=== PATIENT | male | born 1935 | race Caucasian/White ===

== ENCOUNTER 2016-11-05 16:26 | Emergency (ER) | payer MEDICARE ==
[2016-11-05] MEDS ORDERED: SODIUM CHLORIDE 0.9% 1,000 ML IV STA (18:07)
[2016-11-05 18:12] VITALS: RESP 16
--- NOTE | 2016-11-05 18:28 | ED ---
General Adult HPI - General Chief complaint: Wound/Laceration Stated complaint: sent by dr for an ulcer and other issues Time Seen by Provider: 11/05/16 17:58 Source: patient, family, RN notes reviewed Mode of arrival: wheelchair Limitations: physical limitation - History of Present Illness Initial comments: Patient 81-year-old male who presents emergency room today with chief complaint of a decubitus ulcer. Patient does admit to a ulcer that started 4 days ago. History provided by . States first saw 4 days ago. Patient states does not hurt. There is good with family doctor earlier today advised come here to the emergency room for admission. Patient denies any recent fever, chills, shortness of breath, chest pain, back pain, abdominal pain, nausea or vomiting, numbness or tingling, dysuria or hematuria, constipation or diarrhea, headaches or visual changes, or any other complaints. - Related Data Home Medications Medication Instructions Recorded Confirmed Acetaminophen-Codeine 300-30mg 1 tab PO QID PRN 04/01/16 11/05/16 [Tylenol w/codeine #3] Amantadine HCl [Symmetrel] 100 mg PO BID 04/01/16 11/05/16 Carbidopa-Levodopa 25-100 mg 2 tab PO TID 04/01/16 11/05/16 [Sinemet 25-100 mg] Dutasteride [Avodart] 0.5 mg PO DAILY 04/01/16 11/05/16 Furosemide [Lasix] 20 mg PO MOTUWETHFR 04/01/16 11/05/16 Multivitamins, Thera [Multivitamin 1 tab PO DAILY 04/01/16 11/05/16 (formulary)] Balm-3 Fatty Acids/Fish Oil [Fish 1 cap PO DAILY 04/01/16 11/05/16 Oil 1,000 mg Softgel] Pantoprazole Sodium [Protonix] 40 mg PO DAILY 04/01/16 11/05/16 diphenhydrAMINE [Benadryl] 50 mg PO HS 04/01/16 11/05/16 rOPINIRole HCL [Requip] 4 mg PO TID 04/01/16 11/05/16 Benzonatate [Tessalon Perles] 100 mg PO TID 11/05/16 11/05/16 Lactulose 10 gm PO DAILY 11/05/16 11/05/16 Previous Rx's Medication Instructions Recorded Bacitracin Oint 28.4 gm TOPICAL BID #1 tube 11/05/16 Allergies Allergy/AdvReac Type Severity Reaction Status Date / Time oxycodone [From OxyContin] Allergy Rash/Hives Verified 11/05/16 18:38 morphine AdvReac Diaphoresis Verified 11/05/16 18:38 Review of Systems ROS Statement: Those systems with pertinent positive or pertinent negative responses have been documented in the HPI. ROS Other: All systems not noted in ROS Statement are negative. Past Medical History Past Medical History: Dementia Additional Past Medical History / Comment(s): HYPOTENSION, parkinsons, herniated intestine History of Any Multi-Drug Resistant Organisms: None Reported Past Surgical History: Orthopedic Surgery Additional Past Surgical History / Comment(s): LEFT HIP REPLACEMENT AND BACK SURGERY, COLOSTOMY BAG, bilateral rotator cuff Past Psychological History: No Psychological Hx Reported Smoking Status: Former smoker Past Alcohol Use History: None Reported Past Drug Use History: None Reported General Exam - General Exam Comments Initial Comments: General: The patient is awake and alert, in no distress, and does not appear acutely ill. Eye: Pupils are equal, round and reactive to light, extra-ocular movements are intact. No nystagmus. There is normal conjunctiva bilaterally. No signs of icterus. Ears, nose, mouth and throat: There are moist mucous membranes and no oral lesions. Neck: The neck is supple, there is no tenderness or JVD. Cardiovascular: There is a regular rate and rhythm. No murmur, rub or gallop is appreciated. Respiratory: Lungs are clear to auscultation, respirations are non-labored, breath sounds are equal. No wheezes, stridor, rales, or rhonchi. Musculoskeletal: Normal ROM, no tenderness. Strength 5/5. Sensation intact. Pulses equal bilaterally 2+. Neurological: A&O x 3. CN II-XII intact, There are no obvious motor or sensory deficits. Coordination appears grossly intact. Speech is normal. Skin: Patient does have stage I decubitus ulcer to the right buttocks. Measures approximately 2-3 cm across. Psychiatric: Cooperative, appropriate mood & affect, normal judgment. Limitations: physical limitation Course Vital Signs 11/05/16 11/05/16 16:30 18:11 Temperature 98.2 F 98 F Pulse Rate 80 64 Respiratory 20 16 Rate Blood Pressure 115/64 110/53 O2 Sat by Pulse 98 97 Oximetry Medical Decision Making - Medical Decision Making Patient's labs been reviewed are unremarkable. Case was discussed and seen by attending physician Dr. Villarreal here in the emergency room. He did discuss the case with Dr. Solomon at this time does not recommend admission to the hospital. Patient and family member have been updated and will be discharged home advised to use a topical antibiotic ointment and watch for any increase or worsening symptoms. Advised follow-up with PCP in the next 2 days or return here to the emergency room for any other concerns. - Lab Data Result diagrams: 11/05/16 18:20 11/05/16 18:20 Lab Results 11/05/16 11/05/16 11/05/16 Range/Units 18:20 18:20 18:20 WBC 8.8 (3.8-10.6) k/uL RBC 4.22 L (4.30-5.90) m/uL Hgb 12.7 L (13.0-17.5) gm/dL Hct 40.1 (39.0-53.0) % MCV 95.1 (80.0-100.0) fL MCH 30.0 (25.0-35.0) pg MCHC 31.6 (31.0-37.0) g/dL RDW 13.8 (11.5-15.5) % Plt Count 349 (150-450) k/uL Neutrophils % 66 % Lymphocytes % 13 % Monocytes % 8 % Eosinophils % 9 % Basophils % 1 % Neutrophils # 5.8 (1.3-7.7) k/uL Lymphocytes # 1.2 (1.0-4.8) k/uL Monocytes # 0.7 (0-1.0) k/uL Eosinophils # 0.8 H (0-0.7) k/uL Basophils # 0.1 (0-0.2) k/uL Hypochromasia Slight PT 10.5 (9.0-12.0) sec INR 1.0 (<1.1) APTT 23.5 (22.0-30.0) sec Sodium 141 (137-145) mmol/L Potassium 4.2 (3.5-5.1) mmol/L Chloride 105 (98-107) mmol/L Carbon Dioxide 22 (22-30) mmol/L Anion Gap 14 mmol/L BUN 22 H (9-20) mg/dL Creatinine 0.90 (0.66-1.25) mg/dL Est GFR (MDRD) Af Amer >60 (>60 ml/min/1.73 sqM) Est GFR (MDRD) Non-Af >60 (>60 ml/min/1.73 sqM) Glucose 130 H (74-99) mg/dL Calcium 9.2 (8.4-10.2) mg/dL Total Bilirubin 0.3 (0.2-1.3) mg/dL AST 26 (17-59) U/L ALT 14 L (21-72) U/L Alkaline Phosphatase 79 (38-126) U/L Total Protein 6.5 (6.3-8.2) g/dL Albumin 3.8 (3.5-5.0) g/dL Urine Color Urine Appearance (Clear) Urine pH (5.0-8.0) Ur Specific [place] (1.001-1.035) Urine Protein (Negative) Urine Glucose (UA) (Negative) Urine Ketones (Negative) Urine Blood (Negative) Urine Nitrite (Negative) Urine Bilirubin (Negative) Urine Urobilinogen (<2.0) mg/dL Ur Leukocyte Esterase (Negative) 11/05/16 Range/Units 18:30 WBC (3.8-10.6) k/uL RBC (4.30-5.90) m/uL Hgb (13.0-17.5) gm/dL Hct (39.0-53.0) % MCV (80.0-100.0) fL MCH (25.0-35.0) pg MCHC (31.0-37.0) g/dL RDW (11.5-15.5) % Plt Count (150-450) k/uL Neutrophils % % Lymphocytes % % Monocytes % % Eosinophils % % Basophils % % Neutrophils # (1.3-7.7) k/uL Lymphocytes # (1.0-4.8) k/uL Monocytes # (0-1.0) k/uL Eosinophils # (0-0.7) k/uL Basophils # (0-0.2) k/uL Hypochromasia PT (9.0-12.0) sec INR (<1.1) APTT (22.0-30.0) sec Sodium (137-145) mmol/L Potassium (3.5-5.1) mmol/L Chloride (98-107) mmol/L Carbon Dioxide (22-30) mmol/L Anion Gap mmol/L BUN (9-20) mg/dL Creatinine (0.66-1.25) mg/dL Est GFR (MDRD) Af Amer (>60 ml/min/1.73 sqM) Est GFR (MDRD) Non-Af (>60 ml/min/1.73 sqM) Glucose (74-99) mg/dL Calcium (8.4-10.2) mg/dL Total Bilirubin (0.2-1.3) mg/dL AST (17-59) U/L ALT (21-72) U/L Alkaline Phosphatase (38-126) U/L Total Protein (6.3-8.2) g/dL Albumin (3.5-5.0) g/dL Urine Color Yellow Urine Appearance Clear (Clear) Urine pH 5.5 (5.0-8.0) Ur Specific [place] 1.016 (1.001-1.035) Urine Protein Negative (Negative) Urine Glucose (UA) Negative (Negative) Urine Ketones Trace H (Negative) Urine Blood Negative (Negative) Urine Nitrite Negative (Negative) Urine Bilirubin Negative (Negative) Urine Urobilinogen <2.0 (<2.0) mg/dL Ur Leukocyte Esterase Negative (Negative) Disposition Clinical Impression: Decubitus ulcer Disposition: HOME SELF-CARE Condition: Good Instructions: Pressure Ulcer (ED) Additional Instructions: Please make sure that you are changing positions every few hours as discussed. Please use topical antibiotic as prescribed. Please follow-up family doctor over the next 2 days. Please return to emergency room if any symptoms increase or worsen appropriate concerns. Prescriptions: Bacitracin Oint 28.4 gm TOPICAL BID #1 tube Referrals: Mahin Vidales MD [Primary Care Provider] - 1-2 days Time of Disposition: 19:10
[2016-11-05 18:34] LABS: Basophils # (A) 0.1 k/uL (0-0.2); Basophils % (A) 1 %; CH 30.2; CHCM 31.9; Eosinophils # (A) 0.8 k/uL (0-0.7); Eosinophils % (A) 9 %; HCT 40.1 % (39.0-53.0); HDW 2.71; HGB 12.7 gm/dL (13.0-17.5); Hypochromasia Slight; Luc # (Auto) 0.27; Luc % (Auto) 3; Lymphocytes # (A) 1.2 k/uL (1.0-4.8); Lymphocytes % (A) 13 %; MCHC 31.6 g/dL (31.0-37.0); MCV 95.1 fL (80.0-100.0); Mean Platelet Volume 7.2; Monocytes # (A) 0.7 k/uL (0-1.0); Monocytes % (A) 8 %; Neutrophils # (A) 5.8 k/uL (1.3-7.7); Neutrophils % (A) 66 %; RBC 4.22 m/uL (4.30-5.90); RDW 13.8 % (11.5-15.5); WBC 8.8 k/uL (3.8-10.6); WBC (Perox) 8.98
[2016-11-05 18:39] LABS: Partial Thromboplastin Time 23.5 sec (22.0-30.0); Prothrombin Time 10.5 sec (9.0-12.0)
[2016-11-05 18:42] LABS: Chloride 105 mmol/L (98-107); Glucose 130 mg/dL (74-99); Potassium 4.2 mmol/L (3.5-5.1); Total Protein 6.5 g/dL (6.3-8.2)
[2016-11-05 18:42] LABS: Appearance,Urine Clear (Clear); Bilirubin,Urine Negative (Negative); Glucose,Urine (UA) Negative (Negative); Ketones,Urine Trace (Negative); Leukocyte Esterase,Urine Negative (Negative); Nitrite,Urine Negative (Negative); PH, Urine 5.5 (5.0-8.0); Protein,Urine Negative (Negative); Specific Gravity,Urine 1.016 (1.001-1.035); UA Billing (MACRO vs. MICRO) CHEM; Urobilinogen,Urine <2.0 mg/dL (<2.0)
[2016-11-05 18:43] LABS: ALT 14 U/L (21-72); AST 26 U/L (17-59); Alkaline Phosphatase 79 U/L (38-126); Anion Gap 14 mmol/L; Blood Urea Nitrogen 22 mg/dL (9-20); Calcium 9.2 mg/dL (8.4-10.2); Carbon Dioxide 22 mmol/L (22-30); Non-African American GFR(MDRD) >60 (>60 ml/min/1.73 sqM); Sodium 141 mmol/L (137-145); Total Bilirubin 0.3 mg/dL (0.2-1.3)
[2016-11-05 19:33] VITALS: BP 125/67; PULSE 62; TEMP 97.8
== END 2016-11-05 19:36 | disposition home or self-care (01) ==
LOC: EC 16:26
DX: L89.311 Pressure ulcer of right buttock, stage 1 (principal); G20 Parkinson's disease; F02.80 Dementia in other diseases classified elsewhere, unspecified severity, without behavioral disturbance, psychotic disturbance, mood disturbance, and anxiety; Z87.891 Personal history of nicotine dependence; Z88.5 Allergy status to narcotic agent; Z79.899 Other long term (current) drug therapy
CPT/HCPCS: 36415; 80053; 81003; 85025; 85610; 85730; 87040; 96360; 99283

== ENCOUNTER 2017-03-02 11:35 | Inpatient (IN) | payer MEDICARE ==
[2017-03-02 14:27] VITALS: BMI 21.9
[2017-03-02 15:50] LABS: Basophils # (A) 0.1 k/uL (0-0.2); Basophils % (A) 1 %; CH 29.3; CHCM 32.3; Eosinophils # (A) 0.7 k/uL (0-0.7); Eosinophils % (A) 7 %; HCT 39.2 % (39.0-53.0); HDW 2.81; HGB 12.5 gm/dL (13.0-17.5); Luc % (Auto) 2; Lymphocytes % (A) 10 %; MCH 29.1 pg (25.0-35.0); MCHC 31.8 g/dL (31.0-37.0); MCV 91.4 fL (80.0-100.0); Mean Platelet Volume 8.1; Monocytes # (A) 0.7 k/uL (0-1.0); Monocytes % (A) 7 %; Neutrophils # (A) 7.1 k/uL (1.3-7.7); Neutrophils % (A) 73 %; RBC 4.29 m/uL (4.30-5.90); RDW 14.4 % (11.5-15.5); WBC 9.7 k/uL (3.8-10.6); WBC (Perox) 9.89
[2017-03-02] MEDS ORDERED: VANCOMYCIN 1,500 MG in SODIUM CHLORIDE 0.9% 250 ML IVPB ONE (16:00)
[2017-03-02 16:06] LABS: ALT 19 U/L (21-72); AST 22 U/L (17-59); Alkaline Phosphatase 91 U/L (38-126); Anion Gap 9 mmol/L; Blood Urea Nitrogen 24 mg/dL (9-20); C Reactive Protein 27.9 mg/L (<10.0); Carbon Dioxide 28 mmol/L (22-30); Chloride 102 mmol/L (98-107); Glucose 97 mg/dL (74-99); Non-African American GFR(MDRD) >60 (>60 ml/min/1.73 sqM); Potassium 4.7 mmol/L (3.5-5.1); Sodium 139 mmol/L (137-145); Total Bilirubin 0.3 mg/dL (0.2-1.3); Total Protein 6.1 g/dL (6.3-8.2)
[2017-03-02] MEDS: SODIUM CHLORIDE 0.9% 1,000 ML IV SCH (17:07)
[2017-03-02] MEDS: FUROSEMIDE 20 MG TAB PO SCH (17:42)
[2017-03-02] MEDS: CARBIDOPA-LEVODOPA 25-100 MG 1 EACH TAB PO SCH ×2 (17:44→17:58)
[2017-03-02] MEDS: BENZONATATE 100 MG CAP PO SCH (17:44)
[2017-03-02] MEDS: AMANTADINE HCL 100 MG CAP PO SCH (17:44)
[2017-03-02] MEDS: diphenhydrAMINE 50 MG CAP PO SCH (17:44)
[2017-03-02] MEDS: rOPINIRole HCL 4 MG TABLET PO SCH ×2 (18:24)
[2017-03-02] MEDS: Acetaminophen-Codeine 300-30mg TAB PO PRN ×2 (18:24→23:58)
[2017-03-02] MEDS: PIPERACILLIN-TAZOBACTAM 3.375 GM in DEXTROSE/WATER 1 50ML.BAG IVPB SCH ×2 (19:01→23:59)
--- NOTE | 2017-03-02 19:04 | P.HPIM ---
History of Present Illness H&P Date: 03/02/17 Chief Complaint: Severe decub ulcer with failure to outpatient treatment, abdominal pain, ch 82-year-old male debilitated with multiple medical problem had developed decub ulcer for the last few weeks with failure to outpatient treatment has been doing much worse was brought to the hospital as a direct admit was start him on IV antibiotics with Zosyn and vancomycin might require 1 VAC and wound care for the next few weeks. Culture will be done patient also has been complaining of increased abdominal pain with nausea and vomiting with significant recurrent abdominal hernia with his ostomy in the past. Also patient had slight change mental status not been able to ambulate and walk has been having episode of worsening confusion on and off lately. [place] patient has been declining in weight gradually he lost quite bed in the last few month his appetite is down and has been having more trouble with his bowels. Review of Systems Constitutional: Reports anorexia, Reports chronic headaches, Reports chronic pain, Reports fatigue, Reports fever, Reports lethargy, Reports malaise, Reports poor appetite, Reports weakness, Reports weight loss, Denies as per HPI , Denies chills, Denies daytime sleepiness, Denies night sweats, Denies sweats, Denies weight gain Eyes: bilateral as per HPI Ears: bilateral: decreased hearing Ears, nose, mouth and throat: Reports ant. neck pain, Reports mouth pain, Reports nasal congestion, Reports sinus pain, Reports sinus pressure, Denies as per HPI, Denies bleeding gums, Denies dental pain, Denies dysphagia, Denies epistaxis, Denies headache, Denies hoarseness, Denies nasal discharge, Denies neck fullness/pressure, Denies neck lump, Denies nose pain, Denies odynophagia, Denies post-nasal drip, Denies swelling in mouth, Denies swelling in throat, Denies sore throat, Denies vertigo, Denies voice changes Cardiovascular: Reports dyspnea on exertion, Reports irregular heart beat, Reports leg edema, Reports lightheadedness, Reports orthopnea, Reports paroxysmal nocturnal dyspnea, Reports rapid heart beat, Reports shortness of breath, Denies as per HPI, Denies chest pain, Denies claudication, Denies decreased exercise tolerance, Denies edema, Denies high blood pressure, Denies palpitations, Denies phlebitis, Denies syncope Respiratory: Reports congestion, Reports cough, Reports dyspnea, Denies as per HPI, Denies cough with sputum, Denies excessive sputum, Denies hemoptysis, Denies home oxygen, Denies pain, Denies pain on inspiration, Denies pleurisy, Denies respiratory infections, Denies sleep apnea, Denies snoring, Denies wheezing Gastrointestinal: Reports abdominal pain, Reports bloating, Reports change in bowel habits, Reports diarrhea, Reports dyspepsia, Reports early satiety, Reports excessive gas, Reports heartburn, Reports indigestion, Reports nausea, Reports vomiting, Denies as per HPI, Denies belching, Denies BRBPR, Denies coffee ground emesis, Denies constipation, Denies hematemesis, Denies hematochezia, Denies jaundice, Denies lactose intolerance, Denies loss of appetite, Denies melena Genitourinary: Reports dysuria, Reports nocturia, Reports polyuria, Reports urinary hesitancy, Denies as per HPI, Denies decreased libido, Denies difficulties fathering child, Denies discharge, Denies erectile dysfunction, Denies flank pain, Denies genital pain, Denies genital sores, Denies hematuria, Denies impotence, Denies incontinence, Denies kidney stones, Denies testicular lump, Denies testicular pain, Denies urinary frequency, Denies urinary retention Musculoskeletal: Reports atrophy, Reports frequent falls, Reports gait dysfunction, Reports leg numbness/tingling, Reports loss of height, Reports low back pain, Reports myalgias, Reports neck pain, Reports neck stiffness, Denies as per HPI, Denies arm numbness/tingling, Denies fractures, Denies hot joints, Denies limitation of motion, Denies morning stiffness, Denies muscle cramps, Denies muscle weakness, Denies prior amputations, Denies redness of joints, Denies shooting arm pain, Denies shooting leg pain Musculoskeletal: bilateral: ankle pain, ankle stiffness Integumentary: Reports pruritus, Reports rash, Denies as per HPI, Denies acne, Denies boils, Denies brittle nails, Denies change in hair/nails, Denies color changes, Denies darkening of skin, Denies depigmentation, Denies dryness, Denies foot/leg ulcers, Denies growths, Denies hirsutism, Denies lesions, Denies onychomycosis, Denies sores, Denies striae, Denies unusual bruising, Denies wounds Neurological: Reports ataxia, Reports balance difficulties, Reports confusion, Reports gait dysfunction, Reports memory loss, Reports numbness, Reports paresthesias, Reports tingling, Reports tremors, Reports weakness, Denies as per HPI, Denies aphasia, Denies burning pain, Denies change in mentation, Denies change in smell/taste, Denies change in speech, Denies convulsions, Denies double vision, Denies head injury, Denies headaches, Denies hearing difficulties, Denies lack of coordination, Denies loss of vision, Denies migraines, Denies motor disturbance, Denies paralysis, Denies seizures, Denies sensory deficit, Denies spasticity, Denies syncope, Denies tic, Denies transient paralysis, Denies vertigo, Denies visual changes Psychiatric: Reports anhedonia, Reports depression, Denies as per HPI, Denies anxiety, Denies anxiety attacks, Denies change in appetite, Denies change in libido, Denies change in sleep habits, Denies confusion, Denies difficulty concentrating, Denies disorientation, Denies hallucinations, Denies hopelessness , Denies hypersomnia, Denies insomnia, Denies irritability, Denies memory loss, Denies mood swings, Denies paranoia, Denies sadness/tearfulness, Denies sleep disturbances, Denies suicidal ideation Endocrine: Reports cold intolerance, Reports fatigue, Reports heat intolerance, Denies as per HPI, Denies deepening of the voice, Denies excessive sweating, Denies excessive thirst, Denies flushing, Denies high blood sugars, Denies increase in ring/shoe/hat size, Denies low blood sugars, Denies nocturia, Denies palpitations, Denies polydipsia, Denies polyphagia, Denies polyuria, Denies proptosis, Denies recent glucocorticoid use, Denies thyroid mass, Denies weight change Hematologic/Lymphatic: Reports easy bruising, Denies as per HPI, Denies easy bleeding, Denies lymphadenopathy, Denies lymphedema, Denies thrombophilia Allergic/Immunologic: Denies as per HPI, Denies allergic rhinitis, Denies anaphylaxis, Denies angioedema, Denies gluten intolerance, Denies persistent infections, Denies seasonal allergies, Denies urticaria, Denies wheezing Past Medical History Past Medical History: Dementia Additional Past Medical History / Comment(s): HYPOTENSION, parkinsons, herniated intestine History of Any Multi-Drug Resistant Organisms: None Reported Past Surgical History: Orthopedic Surgery Additional Past Surgical History / Comment(s): LEFT HIP REPLACEMENT AND BACK SURGERY, COLOSTOMY BAG, bilateral rotator cuff Past Anesthesia/Blood Transfusion Reactions: No Reported Reaction Past Psychological History: No Psychological Hx Reported Smoking Status: Former smoker Past Alcohol Use History: None Reported Past Drug Use History: None Reported Medications and Allergies Home Medications Medication Instructions Recorded Confirmed Type Acetaminophen-Codeine 300-30mg 1 tab PO QID PRN 04/01/16 03/02/17 History [Tylenol w/codeine #3] Amantadine HCl [Symmetrel] 100 mg PO BID 04/01/16 03/02/17 History Carbidopa-Levodopa 25-100 mg 2 tab PO TID 04/01/16 03/02/17 History [Sinemet 25-100 mg] Dutasteride [Avodart] 0.5 mg PO DAILY 04/01/16 03/02/17 History Furosemide [Lasix] 20 mg PO MOTUWETHFR 04/01/16 03/02/17 History Multivitamins, Thera [Multivitamin 1 tab PO DAILY 04/01/16 03/02/17 History (formulary)] Rhome-3 Fatty Acids/Fish Oil [Fish 1 cap PO DAILY 04/01/16 03/02/17 History Oil 1,000 mg Softgel] Pantoprazole Sodium [Protonix] 40 mg PO DAILY 04/01/16 03/02/17 History diphenhydrAMINE [Benadryl] 50 mg PO HS 04/01/16 03/02/17 History rOPINIRole HCL [Requip] 4 mg PO TID 04/01/16 03/02/17 History Benzonatate [Tessalon Perles] 100 mg PO TID 11/05/16 03/02/17 History Lactulose 10 gm PO DAILY 11/05/16 03/02/17 History Allergies Allergy/AdvReac Type Severity Reaction Status Date / Time oxycodone [From OxyContin] Allergy Rash/Hives Verified 03/02/17 15:23 morphine AdvReac Diaphoresis Verified 03/02/17 15:23 Physical Exam Vitals: Vital Signs Temp Pulse Resp BP Pulse Ox 03/02/17 14:57 98.0 F 77 16 105/69 97 Intake and Output 03/02/17 03/02/17 03/02/17 06:59 14:59 22:59 Other: Voiding Method Urinal Weight 65.317 kg Patient Weight 03/03/17 06:59 Weight 65.317 kg - Constitutional General appearance: no average body habitus, cooperative, no disheveled, no mild distress, no morbidly obese, no acute distress, no obese, no severe distress, no thin - EENT Eyes: no abnormal pupil, no anicteric sclerae, no disc margins sharp, no edentulous, no EOMI, no PERRLA, no fundus normal, no photophobia, no dentition normal, no poor dentition, no ptosis, no scleral icterus, normal appearance ENT: hard of hearing, no hearing grossly normal, no NA/AT, no normal oropharynx , no other, no pharyngeal erythema, no thrush, no tonsillar exudates, no tonsillar swelling Ears: bilateral: normal - Neck Neck: no lymphadenopathy, normal ROM, no other, no rigidity, no stridor, no thyromegaly Carotids: bilateral: upstroke normal Thyroid: bilateral: normal size - Respiratory Respiratory: bilateral: diminished, dullness - Cardiovascular Rhythm: regular Heart sounds: normal: S1, S2 Abnormal Heart Sounds: S3 Gallop - Gastrointestinal Ostomy in the left side with moderate size of hernia bulging out slight tenderness the area around it with no growth or tumor can be found. Multiple scar tissue in his abdominal region from multiple surgery. With his exam is ostomy blowout at the time and has mild leak. No bloody or black stool found. General gastrointestinal: no absent bowel sounds, decreased bowel sounds, distended, no hepatomegaly, no hyperactive bowel sounds, no normal bowel sounds , organomegaly, no rigid, no scaphoid, no soft, no splenomegaly, no tenderness, umbilical hernia, ventral hernia - Integumentary Sacral area has an open spot been pack measure 3 time 4 cm in depth with slight irritation in the soft tissue in the area around it but mild the irritation and drainage. Integumentary: no calor, cellulitis, no cyanotic, decreased turgor, flushed, no jaundiced, no normal, no normal turgor, pale, rash, no ulcer - Neurologic Neurologic: CNII-XII intact - Musculoskeletal Musculoskeletal: no gait normal, no generalized weakness, no strength equal bilaterally, no right sided weakness, no left sided weakness - Psychiatric Psychiatric: no A&O x's 3, no appropriate affect, no intact judgment & insight Results CBC & Chem 7: 03/02/17 15:18 03/02/17 15:18 Labs: Abnormal Lab Results - Last 24 Hours (Table) 03/02/17 03/02/17 Range/Units 15:18 15:18 RBC 4.29 L (4.30-5.90) m/uL Hgb 12.5 L (13.0-17.5) gm/dL BUN 24 H (9-20) mg/dL ALT 19 L (21-72) U/L C-Reactive Protein 27.9 H (<10.0) mg/L Total Protein 6.1 L (6.3-8.2) g/dL Albumin 3.4 L (3.5-5.0) g/dL Thrombosis Risk Factor Assmnt - DVT/VTE Prophylaxis DVT/VTE Prophylaxis: Pharmacologic Prophylaxis ordered, Mechanical Prophylaxis ordered - Choose All That Apply Each Risk Factor Represents 3 Points: Age 75 years or older Thrombosis Risk Factor Assessment Total Risk Factor Score: 3 Thrombosis Risk Factor Assessment Level: Moderate Risk Assessment and Plan Plan: 1 large decub sacral ulcer has not been healed with outpatient treatment. Patient was hospitalized will continue vancomycin and Zosyn we'll consult infectious disease culture will be done continue 1 care possible need for 1 VAC as well for pedis time. 2 recurrent abdominal pain with worsening symptom with ventral hernia with multiple scar tissue from previous surgery consult general surgery see if there is any benefit of the further management and if need repeat CAT scan of the abdomen again. 3 [place] mental status: Most likely combination of his current medication along with the decub sacral ulcer and infection try to treat underlying disease look for secondary infection if possible. 4 advance Parkinson disease: Patient has been on Requip along with amantadine and Sinemet has been seen Dr. Calderon on regular basis. 5 chronic edema: Has been on Lasix continue medication. 6 severe GERD has been on Protonix 40 mg daily. 7 debility: With his current condition will consult PTOT patient might benefit from going to [facility]. 8 BPH: Resume Proscar at 5 mg daily. 9 DVT prophylaxis: Patient will be on heparin 5000 units subcutaneous twice a day. CODE STATUS: Full code. Expectation from this admission: Patient be in the hospital for more than 2 nights.
[2017-03-02 19:20] LABS: Erythrocyte Sedimentation Rate 35 mm/hr (0-15)
[2017-03-02] MEDS: HEPARIN SODIUM,PORCINE 5,000 UNIT/ML 1 ML VIAL SQ SCH (21:05)
--- NOTE | 2017-03-02 22:16 | P.CNNES ---
History of Present Illness Consult date: 03/02/17 Reason for Consult: Patient with altered mental status and History of Present Illness: This patient is a 82-year-old right-handed white male who was admitted to [facility] on 03/02/2017 for evaluation of severe decubitus ulcer that was nonhealing. Patient was treated in the outpatient setting for treatment of this ulcer. He was on several antibiotics. He had failed outpatient therapy and was advised admission to the hospital for IV antibiotic treatment as well as a infectious disease consultation. Patient has a long- standing history of Parkinson's disease for over 15 years. He has been confined to using a walker at home to ambulate secondary to his Parkinson's condition. He states he also uses a wheelchair a great deal of the time. He is quite weak in both of his lower extremities as well. Patient states he can get up with minimal assistance and use a walker. He states he can walk about 100 feet without much difficulty. The patient does have a large sacral ulcer that has been nonhealing. He denies any pain in this area at this time. He has been treated for his underlying Parkinson's disease and is currently on multiple medications including Sinemet, Requip, and amantadine. He states his current status in terms of his Parkinson's condition remained stable. He denies any recent falls. He has shown increasing symptoms of confusion and mild disorientation. He has undergone a computed tomography scan of the brain on 12/30/2014 which at that time did reveal evidence of cortical atrophy. He has history suggesting underlying dementia as well. He was noted to be more confused today by Dr. Vidales. Due to this increased confusion neurology was consulted today for further evaluation. The patient appears to be appropriate at this time and does answer questions appropriately. He denies any headache. He denies any major confusion. We have recommended for the patient to have a computed tomography scan of the brain for comparison to his previous study done in 2015. He is to be seen by Gen. surgery regarding hernias that have been noted close to his colostomy site. We are also waiting an infectious disease consultation regarding his nonhealing decubitus ulcer. Neurologically he remains intact at this time. He denies any worsening of his underlying Parkinson's condition. Neurology is now been consulted for further evaluation and recommendations. Review of Systems Constitutional: Denies chills, Denies fever Eyes: denies blurred vision, denies pain Ears, nose, mouth and throat: Denies headache, Denies sore throat Cardiovascular: Denies chest pain, Denies shortness of breath Respiratory: Denies cough Gastrointestinal: Denies abdominal pain, Denies diarrhea, Denies nausea, Denies vomiting Musculoskeletal: Denies myalgias Integumentary: Denies pruritus, Denies rash Neurological: Reports balance difficulties, Reports change in mentation, Reports confusion, Reports gait dysfunction, Reports lack of coordination, Reports motor disturbance, Reports tremors, Denies numbness, Denies weakness Psychiatric: Reports memory loss, Denies anxiety, Denies depression Endocrine: Denies fatigue, Denies weight change Past Medical History Past Medical History: Dementia Additional Past Medical History / Comment(s): HYPOTENSION, parkinsons, herniated intestine History of Any Multi-Drug Resistant Organisms: None Reported Past Surgical History: Orthopedic Surgery Additional Past Surgical History / Comment(s): LEFT HIP REPLACEMENT AND BACK SURGERY, COLOSTOMY BAG, bilateral rotator cuff Past Anesthesia/Blood Transfusion Reactions: No Reported Reaction Past Psychological History: No Psychological Hx Reported Smoking Status: Former smoker Past Alcohol Use History: None Reported Past Drug Use History: None Reported Medications and Allergies Home Medications Medication Instructions Recorded Confirmed Type Acetaminophen-Codeine 300-30mg 1 tab PO QID PRN 04/01/16 03/02/17 History [Tylenol w/codeine #3] Amantadine HCl [Symmetrel] 100 mg PO BID 04/01/16 03/02/17 History Carbidopa-Levodopa 25-100 mg 2 tab PO TID 04/01/16 03/02/17 History [Sinemet 25-100 mg] Dutasteride [Avodart] 0.5 mg PO DAILY 04/01/16 03/02/17 History Furosemide [Lasix] 20 mg PO MOTUWETHFR 04/01/16 03/02/17 History Multivitamins, Thera [Multivitamin 1 tab PO DAILY 04/01/16 03/02/17 History (formulary)] Henry-3 Fatty Acids/Fish Oil [Fish 1 cap PO DAILY 04/01/16 03/02/17 History Oil 1,000 mg Softgel] Pantoprazole Sodium [Protonix] 40 mg PO DAILY 04/01/16 03/02/17 History diphenhydrAMINE [Benadryl] 50 mg PO HS 04/01/16 03/02/17 History rOPINIRole HCL [Requip] 4 mg PO TID 04/01/16 03/02/17 History Benzonatate [Tessalon Perles] 100 mg PO TID 11/05/16 03/02/17 History Lactulose 10 gm PO DAILY 11/05/16 03/02/17 History Allergies Allergy/AdvReac Type Severity Reaction Status Date / Time oxycodone [From OxyContin] Allergy Rash/Hives Verified 03/02/17 15:23 morphine AdvReac Diaphoresis Verified 03/02/17 15:23 Physical Examination - Vital Signs Vital Signs: Vital Signs Temp Pulse Resp BP Pulse Ox 03/02/17 14:57 98.0 F 77 16 105/69 97 Intake and Output 03/02/17 03/02/17 03/02/17 06:59 14:59 22:59 Other: Voiding Method Urinal Weight 65.317 kg Patient Weight 03/03/17 06:59 Weight 65.317 kg - Constitutional General appearance: average body habitus, cooperative - EENT EENT: PERRL, mucous membranes moist - Respiratory Respiratory: lungs clear, normal breath sounds - Cardiovascular Cardiovascular: regular rate, normal S1, normal S2 Extremities: no peripheral edema bilaterally - Gastrointestinal Gastrointestinal: normoactive bowel sounds - Integumentary Integumentary: normal - Neurologic Cranial nerve examination: anosmic, PERRL, V1/V2/V3 grossly intact, face symmetric, tongue midline, intact gag reflex, intact corneal reflex, normal palatal elevation Speech examination: intact Sensorimotor examination: intact Detailed motor examination: grossly full strength in all extremities Motor examination - right side: 3/5: biceps, triceps, wrist flexion, wrist extension, printed circuit board panels plater, hip flexors, knee extensors, dorsiflexion, toe extension (EHL) , plantarflexion Motor examination - left side: 3/5: biceps, triceps, wrist flexion, wrist extension, printed circuit board panels plater, hip flexors, knee extensors, dorsiflexion, toe extension (EHL) , plantarflexion Detailed sensory examination: intact Reflex and gait examination: intact Reflexes: 1+: ankle, bicep, knee, tricep - Musculoskeletal Musculoskeletal: no pain - Psychiatric Psychiatric: mood/affect appropriate, cooperative Results - Laboratory Findings CBC and BMP: 03/02/17 15:18 03/02/17 15:18 Abnormal Lab Findings: Abnormal Labs 03/02/17 03/02/17 15:18 15:18 RBC 4.29 L Hgb 12.5 L ESR 35 H BUN 24 H ALT 19 L C-Reactive Protein 27.9 H Total Protein 6.1 L Albumin 3.4 L Assessment and Plan (1) Metabolic encephalopathy Status: Acute Code(s): G93.41 - METABOLIC ENCEPHALOPATHY (2) Parkinson's disease Status: Acute Code(s): G20 - PARKINSON'S DISEASE (3) Sacral decubitus ulcer Status: Acute Code(s): L89.159 - PRESSURE ULCER OF SACRAL REGION, UNSPECIFIED STAGE (4) Parkinson's disease dementia Status: Acute Code(s): G20 - PARKINSON'S DISEASE; F02.80 - DEMENTIA IN OTH DISEASES CLASSD ELSWHR W/O BEHAVRL DISTURB Plan: This patient is a 82-year-old right-handed white male who was admitted to [facility] today for further treatment of a nonhealing decubitus ulcer. Patient had been treated in the outpatient setting for the ulcer with oral antibiotics. He was admitted to hospital for IV antibiotic therapy and further treatment. Patient has a history of underlying Parkinson's disease and dementia. He was noted today to show increased confusion and disorientation. His previous computed tomography scan of the brain performed on 12/30/2014 was reviewed and does reveal evidence of moderate degree of cortical atrophy. We have recommended a follow-up computed tomography scan of the brain for comparison. Patient's Parkinson's condition remains stable at this time. He should continue with all 3 of his current medications. We will obtain a routine EEG for further assessment of his cognitive status as well. His overall prognosis at this time remains very guarded. We will await further recommendations from general surgery and infectious disease regarding further treatment plans. We will follow along with the admitting physician for further management of his overall neurological status as needed. This patient's overall prognosis at this time remains very guarded. Time with Patient: Greater than 30
[2017-03-03] MEDS: SODIUM CHLORIDE 0.9% 1,000 ML IV SCH ×2 (04:45→19:43)
[2017-03-03] MEDS: Acetaminophen-Codeine 300-30mg TAB PO PRN (04:45)
[2017-03-03 07:47] LABS: Basophils # (A) 0.1 k/uL (0-0.2); Basophils % (A) 1 %; CH 29.3; CHCM 31.9; Eosinophils # (A) 0.6 k/uL (0-0.7); Eosinophils % (A) 5 %; HCT 37.1 % (39.0-53.0); HDW 2.77; HGB 11.7 gm/dL (13.0-17.5); Hypochromasia Slight; Luc # (Auto) 0.14; Luc % (Auto) 1; Lymphocytes # (A) 0.7 k/uL (1.0-4.8); Lymphocytes % (A) 6 %; MCHC 31.4 g/dL (31.0-37.0); MCV 92.5 fL (80.0-100.0); Mean Platelet Volume 7.3; Monocytes # (A) 0.4 k/uL (0-1.0); Monocytes % (A) 4 %; Neutrophils # (A) 9.4 k/uL (1.3-7.7); Neutrophils % (A) 83 %; RBC 4.02 m/uL (4.30-5.90); RDW 14.2 % (11.5-15.5); WBC 11.3 k/uL (3.8-10.6); WBC (Perox) 12.34
[2017-03-03 08:09] LABS: ALT 22 U/L (21-72); AST 20 U/L (17-59); Alkaline Phosphatase 80 U/L (38-126); Anion Gap 8 mmol/L; Blood Urea Nitrogen 24 mg/dL (9-20); Calcium 8.7 mg/dL (8.4-10.2); Carbon Dioxide 28 mmol/L (22-30); Chloride 102 mmol/L (98-107); Glucose 83 mg/dL (74-99); Non-African American GFR(MDRD) >60 (>60 ml/min/1.73 sqM); Potassium 4.6 mmol/L (3.5-5.1); Sodium 138 mmol/L (137-145); Total Bilirubin 0.7 mg/dL (0.2-1.3); Total Protein 5.6 g/dL (6.3-8.2)
[2017-03-03] MEDS: VANCOMYCIN 1,250 MG in SODIUM CHLORIDE 0.9% 250 ML IVPB SCH ×2 (08:56→22:53)
[2017-03-03] MEDS: BENZONATATE 100 MG CAP PO SCH ×3 (08:57→21:13)
[2017-03-03] MEDS: AMANTADINE HCL 100 MG CAP PO SCH ×2 (08:57→21:12)
[2017-03-03] MEDS: PIPERACILLIN-TAZOBACTAM 3.375 GM in DEXTROSE/WATER 1 50ML.BAG IVPB SCH ×3 (08:57→22:53)
[2017-03-03] MEDS: CARBIDOPA-LEVODOPA 25-100 MG 1 EACH TAB PO SCH ×3 (08:58→21:13)
[2017-03-03] MEDS: FINASTERIDE 5 MG TAB PO SCH (08:58)
[2017-03-03] MEDS: FUROSEMIDE 20 MG TAB PO SCH (08:58)
[2017-03-03] MEDS: HEPARIN SODIUM,PORCINE 5,000 UNIT/ML 1 ML VIAL SQ SCH ×2 (08:58→21:11)
[2017-03-03] MEDS: rOPINIRole HCL 4 MG TABLET PO SCH ×3 (08:59→21:14)
[2017-03-03] MEDS ORDERED: PANTOPRAZOLE 40 MG/10 ML VIAL IVP SCH (09:00)
[2017-03-03] MEDS ORDERED: LACTULOSE 200 GM/300 ML (FROM 1/2 GAL JUG) PO SCH (09:00)
[2017-03-03] MEDS: MULTIVITAMINS, THERA 1 EACH TAB PO SCH (12:11)
--- NOTE | 2017-03-03 12:56 | P.GSCN ---
History of Present Illness Consult date: 03/03/17 Reason for Consult: Decubitus ulcer of the sacrum with abdominal pain History of present illness: 82-year-old male known to surgical service being seen at the request of the attending for a surgical eval regarding a large decubitus sacral ulcer nonhealing with abdominal pain recurrent with evidence of a hernia at stoma site the sacral decubitus ulcer measures 2.5 cm in depth at the 7 o'clock position at 6 o'clock position 1 cm depth. with 1.5 cm. length 2 cm. The edges around the ulcer are pink. There is a moderate amount of drainage noted on the dressing with dry packing in place no odor noted. Family member at the bedside indicates that the patient did have a wound VAC in place this was removed several days ago. They also indicate the patient's does take provide most of the wound care in regards to the decubitus ulcer. Additionally patient does follow-up at the wound care center at [facility] weekly currently the patient has an ostomy with an ostomy bag in place a moderate amount of liquid brown stool noted. The abdominal hernia involving the stoma stoma reducible. Abdomen soft not distended nontender According to the family patient has limited mobility. Apparently had failed outpatient treatment brought into the hospital for the above-mentioned symptoms. Cultures have been obtained of the wound infectious disease consultation requested Review of Systems Essentially unremarkable except as mentioned in the present illness Past Medical History Past Medical History: Dementia Additional Past Medical History / Comment(s): HYPOTENSION, parkinsons, herniated intestine History of Any Multi-Drug Resistant Organisms: None Reported Past Surgical History: Orthopedic Surgery Additional Past Surgical History / Comment(s): LEFT HIP REPLACEMENT AND BACK SURGERY, COLOSTOMY BAG, bilateral rotator cuff Past Anesthesia/Blood Transfusion Reactions: No Reported Reaction Past Psychological History: No Psychological Hx Reported Smoking Status: Former smoker Past Alcohol Use History: None Reported Past Drug Use History: None Reported Medications and Allergies Home Medications Medication Instructions Recorded Confirmed Type Acetaminophen-Codeine 300-30mg 1 tab PO QID PRN 04/01/16 03/02/17 History [Tylenol w/codeine #3] Amantadine HCl [Symmetrel] 100 mg PO BID 04/01/16 03/02/17 History Carbidopa-Levodopa 25-100 mg 2 tab PO TID 04/01/16 03/02/17 History [Sinemet 25-100 mg] Dutasteride [Avodart] 0.5 mg PO DAILY 04/01/16 03/02/17 History Furosemide [Lasix] 20 mg PO MOTUWETHFR 04/01/16 03/02/17 History Multivitamins, Thera [Multivitamin 1 tab PO DAILY 04/01/16 03/02/17 History (formulary)] Bagley-3 Fatty Acids/Fish Oil [Fish 1 cap PO DAILY 04/01/16 03/02/17 History Oil 1,000 mg Softgel] Pantoprazole Sodium [Protonix] 40 mg PO DAILY 04/01/16 03/02/17 History diphenhydrAMINE [Benadryl] 50 mg PO HS 04/01/16 03/02/17 History rOPINIRole HCL [Requip] 4 mg PO TID 04/01/16 03/02/17 History Benzonatate [Tessalon Perles] 100 mg PO TID 11/05/16 03/02/17 History Lactulose 10 gm PO DAILY 11/05/16 03/02/17 History Allergies Allergy/AdvReac Type Severity Reaction Status Date / Time oxycodone [From OxyContin] Allergy Rash/Hives Verified 03/02/17 15:23 morphine AdvReac Diaphoresis Verified 03/02/17 15:23 Surgical - Exam Vital Signs Temp Pulse Resp BP Pulse Ox 98.0 F 77 16 105/69 97 03/02/17 14:57 03/02/17 14:57 03/02/17 14:57 03/02/17 14:57 03/02/17 14:57 GENERAL APPEARANCE: 82-year-old male patient is alert, oriented 3, in no acute distress very hard of hearing. Pleasant cooperative VITAL SIGNS: Reviewed HEENT: Head is normocephalic and atraumatic. Pupils are equal and reactive. The nares are patent. Oropharynx is clear without lesions. NECK: Supple without lymphadenopathy. Traches midline. HEART: S1, S2. Regular rate and rhythm. No murmur noted denying chest pain LUNGS: No crackles or wheezes are heard. Adequate air movement bilaterally on room air no cough ABDOMEN: Soft, nontender, nondistended with good bowel sounds. No peritoneal signs. No palpable organomegaly or masses. Left side hernia reducible Stoma pink hernia around the stoma bowel tones present moderate amount of stool noted in the ostomy bag no reports of nausea vomiting EXTREMITIES: Normal skin color and turgor. Left lower extremity redness noted no heel breakdown. Radial pedal pulses are 2/4 bilaterally. . Results - Labs 03/03/17 07:28 03/03/17 07:28 Abnormal Lab Results - Last 24 Hours (Table) 03/02/17 03/02/17 03/03/17 Range/Units 15:18 15:18 07:28 WBC 11.3 H (3.8-10.6) k/uL RBC 4.29 L 4.02 L (4.30-5.90) m/uL Hgb 12.5 L 11.7 L (13.0-17.5) gm/dL Hct 37.1 L (39.0-53.0) % Neutrophils # 9.4 H (1.3-7.7) k/uL Lymphocytes # 0.7 L (1.0-4.8) k/uL ESR 35 H (0-15) mm/hr BUN 24 H (9-20) mg/dL ALT 19 L (21-72) U/L C-Reactive Protein 27.9 H (<10.0) mg/L Total Protein 6.1 L (6.3-8.2) g/dL Albumin 3.4 L (3.5-5.0) g/dL 03/03/17 Range/Units 07:28 WBC (3.8-10.6) k/uL RBC (4.30-5.90) m/uL Hgb (13.0-17.5) gm/dL Hct (39.0-53.0) % Neutrophils # (1.3-7.7) k/uL Lymphocytes # (1.0-4.8) k/uL ESR (0-15) mm/hr BUN 24 H (9-20) mg/dL ALT (21-72) U/L C-Reactive Protein (<10.0) mg/L Total Protein 5.6 L (6.3-8.2) g/dL Albumin 3.1 L (3.5-5.0) g/dL Diabetes panel 03/02/17 03/03/17 Range/Units 15:18 07:28 Sodium 139 138 (137-145) mmol/L Potassium 4.7 4.6 (3.5-5.1) mmol/L Chloride 102 102 (98-107) mmol/L Carbon Dioxide 28 28 (22-30) mmol/L BUN 24 H 24 H (9-20) mg/dL Creatinine 0.80 0.82 (0.66-1.25) mg/dL Glucose 97 83 (74-99) mg/dL Calcium 9.0 8.7 (8.4-10.2) mg/dL AST 22 20 (17-59) U/L ALT 19 L 22 (21-72) U/L Alkaline Phosphatase 91 80 (38-126) U/L Total Protein 6.1 L 5.6 L (6.3-8.2) g/dL Albumin 3.4 L 3.1 L (3.5-5.0) g/dL Calcium panel 03/02/17 03/03/17 Range/Units 15:18 07:28 Calcium 9.0 8.7 (8.4-10.2) mg/dL Albumin 3.4 L 3.1 L (3.5-5.0) g/dL Pituitary panel 03/02/17 03/03/17 Range/Units 15:18 07:28 Sodium 139 138 (137-145) mmol/L Potassium 4.7 4.6 (3.5-5.1) mmol/L Chloride 102 102 (98-107) mmol/L Carbon Dioxide 28 28 (22-30) mmol/L BUN 24 H 24 H (9-20) mg/dL Creatinine 0.80 0.82 (0.66-1.25) mg/dL Glucose 97 83 (74-99) mg/dL Calcium 9.0 8.7 (8.4-10.2) mg/dL Adrenal panel 03/02/17 03/03/17 Range/Units 15:18 07:28 Sodium 139 138 (137-145) mmol/L Potassium 4.7 4.6 (3.5-5.1) mmol/L Chloride 102 102 (98-107) mmol/L Carbon Dioxide 28 28 (22-30) mmol/L BUN 24 H 24 H (9-20) mg/dL Creatinine 0.80 0.82 (0.66-1.25) mg/dL Glucose 97 83 (74-99) mg/dL Calcium 9.0 8.7 (8.4-10.2) mg/dL Total Bilirubin 0.3 0.7 (0.2-1.3) mg/dL AST 22 20 (17-59) U/L ALT 19 L 22 (21-72) U/L Alkaline Phosphatase 91 80 (38-126) U/L Total Protein 6.1 L 5.6 L (6.3-8.2) g/dL Albumin 3.4 L 3.1 L (3.5-5.0) g/dL Assessment and Plan Plan: Impression Present on admission sacral decubitus ulcer nonhealing measures 2 cm in length 1.5 cm with Chronic debility Severe esophageal reflex Advanced Parkinson's disease Reoccurring abdominal pain with history of multiple hernias with no surgical approach History of a bowel resection with an ostomy greater than 10 year prior History of reoccurring multiple abdominal hernias reducible Plan Await infectious diseases recommendations in regards to antibiotic and wound care defer to no evidence of an acute surgical abdomen Possible debridement of the sacral decubitus ulcer DVT and GI prophylaxis Resume home meds as appropriate defer to medicine to manage Further surgical recommendations pending clinical course The above impression and plan of care have been discussed and directed by signing physician. Jen Mcpherson nurse practitioner acting as scribe for signing physician.
[2017-03-03] MEDS: LACTULOSE 20 GM/30 ML CUP PO SCH (13:26)
--- NOTE | 2017-03-03 13:42 | P.PN ---
Lazaro Jimenez is a 82-year-old right-handed white male who was seen in neurology consultation yesterday for evaluation of altered mental status. Patient has a known history of underlying Parkinson's disease. He was noted yesterday is having increasing episodes of confusion and disorientation. He was seen in neurology consultation yesterday and did seem to be appropriate for his age. He was answering questions appropriately. We did recommend the patient undergo a CAT scan of the brain for further evaluation and comparison to her previous study done 2 years ago. His previous CAT scan of the brain did reveal evidence of cortical atrophy with some frontotemporal atrophy noted bilaterally. We are awaiting a computed tomography scan of the brain to be done today for further assessment. Patient was sent for routine EEG today which will be reviewed and read later today. Patient does seem to be resting comfortably. His Parkinson's condition remains very stable on his current medications. He was seen by surgery and Dr. Fontanez has evaluated his decubitus ulcer and colostomy hernia and things appeared to be stable. The patient has been appropriate this morning according to the nursing staff. He has been answering questions appropriately. He does not appear to be acutely confused or disoriented this morning. We will continue close neurological follow-up of this patient during this admission. Objective - Vital Signs Vital signs: Vital Signs Temp 97.6 F 03/03/17 06:50 Pulse 60 03/03/17 06:50 Resp 74 H 03/03/17 08:20 BP 126/74 03/03/17 06:50 Pulse Ox 96 03/03/17 06:50 Intake & Output 03/02/17 03/03/17 03/03/17 18:59 06:59 18:59 Intake Total 1025 240 Balance 1025 240 Weight 65.317 kg 65.317 kg Intake: Intake, IV Titration 375 Amount Piperacillin-Tazobactam 3 150 .375 gm In Dextrose/Water 1 50ml.bag @ 12.5 mls/hr IVPB Q8HR FAM Rx#: [id number] Sodium Chloride 0.9% 1, 225 000 ml @ 75 mls/hr IV . [id number] FAM Rx#:[id number] Oral 650 240 Other: Voiding Method Urinal # Voids 2 - Exam Physical examination: PHYSICAL EXAMINATION: Patient is resting comfortably in bed. VITAL SIGNS: Blood pressure is [126/74]. Heart rate is [60]. Respiration is [18] . Temperature is [97.7]. HEENT: Head is atraumatic, neck is supple, there were no carotid bruits. CHEST: Lungs are clear to auscultation and percussion. CARDIAC: S1, S2 normal rate and rhythm. There is no murmur. ABDOMEN: Soft and nontender. Bowel sounds are present. EXTREMITIES: There is no pedal edema. Peripheral pulses are present. Neurological examination: Patient is resting comfortably in bed. He is alert and oriented 3. His speech is slow and at times slightly hesitant. He is following simple commands easily. His memory and intellectual function slightly impaired. Cranial nerve examination: Cranial nerves II through XII are grossly intact. Motor examination: Patient has no pronator drift. Muscle tone reveals minimal cogwheel rigidity in the upper extremities. Muscle strength testing is 4-/5 throughout. Sensory examination was intact. Deep tendon reflexes: The DTRs are 1+ and symmetric. Plantar responses flexor bilaterally. - Labs CBC & Chem 7: 03/03/17 07:28 03/03/17 07:28 Labs: Abnormal Lab Results - Last 24 Hours (Table) 03/02/17 03/02/17 03/03/17 Range/Units 15:18 15:18 07:28 WBC 11.3 H (3.8-10.6) k/uL RBC 4.29 L 4.02 L (4.30-5.90) m/uL Hgb 12.5 L 11.7 L (13.0-17.5) gm/dL Hct 37.1 L (39.0-53.0) % Neutrophils # 9.4 H (1.3-7.7) k/uL Lymphocytes # 0.7 L (1.0-4.8) k/uL ESR 35 H (0-15) mm/hr BUN 24 H (9-20) mg/dL ALT 19 L (21-72) U/L C-Reactive Protein 27.9 H (<10.0) mg/L Total Protein 6.1 L (6.3-8.2) g/dL Albumin 3.4 L (3.5-5.0) g/dL 03/03/17 Range/Units 07:28 WBC (3.8-10.6) k/uL RBC (4.30-5.90) m/uL Hgb (13.0-17.5) gm/dL Hct (39.0-53.0) % Neutrophils # (1.3-7.7) k/uL Lymphocytes # (1.0-4.8) k/uL ESR (0-15) mm/hr BUN 24 H (9-20) mg/dL ALT (21-72) U/L C-Reactive Protein (<10.0) mg/L Total Protein 5.6 L (6.3-8.2) g/dL Albumin 3.1 L (3.5-5.0) g/dL Assessment and Plan (1) Metabolic encephalopathy Status: Acute Code(s): G93.41 - METABOLIC ENCEPHALOPATHY (2) Parkinson's disease Status: Acute Code(s): G20 - PARKINSON'S DISEASE (3) Sacral decubitus ulcer Status: Acute Code(s): L89.159 - PRESSURE ULCER OF SACRAL REGION, UNSPECIFIED STAGE (4) Parkinson's disease dementia Status: Acute Code(s): G20 - PARKINSON'S DISEASE; F02.80 - DEMENTIA IN OTH DISEASES CLASSD ELSWHR W/O BEHAVRL DISTURB Plan: This patient is a pleasant 82-year-old right-handed white male who is being evaluated for altered mental status and mild confusion. Patient has multiple complex medical issues including a known history of underlying Parkinson's disease and mild memory loss. We have recommended a computed tomography scan of the brain to be done today and we're waiting this final report. He underwent a routine EEG earlier today and this will be reviewed and dictated later today as well. His Parkinson's condition remains very stable this morning. His mental status also seems slightly better than yesterday as well on his neurological assessment this afternoon. Would consider physical therapy evaluation for possible ongoing outpatient PT for treatment of his underlying Parkinson's condition. He apparently ambulates with the use of his walker and cane at home. He is to continue on his current Parkinson medications. We will continue close neurological follow-up for this patient during this admission. His overall prognosis at this time remains guarded.
--- NOTE | 2017-03-03 14:20 | CT ---
EXAMINATION TYPE: CT brain wo con DATE OF EXAM: 03/02/2017 COMPARISON: 12/30/2014 HISTORY: Parkinson's disease and dementia, compare 12/30/14 CT DLP: 1029.90 mGycm Automated exposure control for dose reduction was used. FINDINGS: Diffuse generalized degenerative change and after feet is again noted. Nonspecific hypoattenuation within the white matter is again seen. Areas of abnormal attenuation invo lving the anterior limb of the internal capsule bilaterally noted Atherosclerotic change of the vasculature. Changes of chronic mastoiditis on the right are noted. Par tially empty sella turcica noted. Small focal area of focal low-attenuation within the basal ganglia suggestive of remote lacunar infarct. IMPRESSION: EXTENSIVE DEGENERATIVE AND NONSPECIFIC WHITE MATTER CHANGES MOST TYPICAL REMOTE MICROVASCULAR ISCHEMI A. FINDINGS ARE SIMILAR TO THE PRIOR EXAM. CHRONIC RIGHT MASTOIDITIS.
--- NOTE | 2017-03-03 16:01 | P.PN ---
Subjective 82-year-old male debilitated with multiple medical problem had developed decub ulcer for the last few weeks with failure to outpatient treatment has been doing much worse was brought to the hospital as a direct admit was start him on IV antibiotics with Zosyn and vancomycin might require 1 VAC and wound care for the next few weeks. Culture will be done patient also has been complaining of increased abdominal pain with nausea and vomiting with significant recurrent abdominal hernia with his ostomy in the past. Also patient had slight change mental status not been able to ambulate and walk has been having episode of worsening confusion on and off lately. [place] patient has been declining in weight gradually he lost quite bed in the last few month his appetite is down and has been having more trouble with his bowels. 03/03: The patient was seen and evaluated today, he was noted to be sitting up in the bed resting comfortably with his caregiver at the bedside. Dr Berg was consulted for his acute mental status changes and confusion. EEG was ordered and performed, pending results. CT head showed chronic nonspecific white matter changes that is similar to prior exams. Surgery on consult for his herniated ostomy and sacral decubitis ulcer, may need debridement. Objective - Vital Signs Vital signs: Vital Signs Temp 97.6 F 03/03/17 06:50 Pulse 60 03/03/17 06:50 Resp 74 H 03/03/17 08:20 BP 126/74 03/03/17 06:50 Pulse Ox 96 03/03/17 06:50 Intake & Output 03/02/17 03/03/17 03/03/17 18:59 06:59 18:59 Intake Total 1025 240 Balance 1025 240 Weight 65.317 kg 65.317 kg Intake: Intake, IV Titration 375 Amount Piperacillin-Tazobactam 3 150 .375 gm In Dextrose/Water 1 50ml.bag @ 12.5 mls/hr IVPB Q8HR FAM Rx#: [id number] Sodium Chloride 0.9% 1, 225 000 ml @ 75 mls/hr IV . [id number] FAM Rx#:[id number] Oral 650 240 Other: Voiding Method Urinal # Voids 2 - Exam - Constitutional General appearance: no average body habitus, cooperative, no disheveled, no mild distress, no morbidly obese, no acute distress, no obese, no severe distress, no thin - EENT Eyes: no abnormal pupil, no anicteric sclerae, no disc margins sharp, no edentulous, no EOMI, no PERRLA, no fundus normal, no photophobia, no dentition normal, no poor dentition, no ptosis, no scleral icterus, normal appearance ENT: hard of hearing, no hearing grossly normal, no NA/AT, no normal oropharynx , no other, no pharyngeal erythema, no thrush, no tonsillar exudates, no tonsillar swelling Ears: bilateral: normal - Neck Neck: no lymphadenopathy, normal ROM, no other, no rigidity, no stridor, no thyromegaly Carotids: bilateral: upstroke normal Thyroid: bilateral: normal size - Respiratory Respiratory: bilateral: diminished, dullness - Cardiovascular Rhythm: regular Heart sounds: normal: S1, S2 Abnormal Heart Sounds: S3 Gallop - Gastrointestinal Ostomy in the left side with moderate size of hernia bulging out slight tenderness the area around it with no growth or tumor can be found. Multiple scar tissue in his abdominal region from multiple surgery. With his exam is ostomy blowout at the time and has mild leak. No bloody or black stool found. General gastrointestinal: no absent bowel sounds, decreased bowel sounds, distended, no hepatomegaly, no hyperactive bowel sounds, no normal bowel sounds , organomegaly, no rigid, no scaphoid, no soft, no splenomegaly, no tenderness, umbilical hernia, ventral hernia - Integumentary Sacral area has an open spot been pack measure 3 time 4 cm in depth with slight irritation in the soft tissue in the area around it but mild the irritation and drainage. Integumentary: no calor, cellulitis, no cyanotic, decreased turgor, flushed, no jaundiced, no normal, no normal turgor, pale, rash, no ulcer - Neurologic Neurologic: CNII-XII intact - Musculoskeletal Musculoskeletal: no gait normal, no generalized weakness, no strength equal bilaterally, no right sided weakness, no left sided weakness - Psychiatric Psychiatric: no A&O x's 3, no appropriate affect, no intact judgment & insight - Labs CBC & Chem 7: 03/03/17 07:28 03/03/17 07:28 Labs: Abnormal Lab Results - Last 24 Hours (Table) 03/02/17 03/02/17 03/03/17 Range/Units 15:18 15:18 07:28 WBC 11.3 H (3.8-10.6) k/uL RBC 4.29 L 4.02 L (4.30-5.90) m/uL Hgb 12.5 L 11.7 L (13.0-17.5) gm/dL Hct 37.1 L (39.0-53.0) % Neutrophils # 9.4 H (1.3-7.7) k/uL Lymphocytes # 0.7 L (1.0-4.8) k/uL ESR 35 H (0-15) mm/hr BUN 24 H (9-20) mg/dL ALT 19 L (21-72) U/L C-Reactive Protein 27.9 H (<10.0) mg/L Total Protein 6.1 L (6.3-8.2) g/dL Albumin 3.4 L (3.5-5.0) g/dL 03/03/17 Range/Units 07:28 WBC (3.8-10.6) k/uL RBC (4.30-5.90) m/uL Hgb (13.0-17.5) gm/dL Hct (39.0-53.0) % Neutrophils # (1.3-7.7) k/uL Lymphocytes # (1.0-4.8) k/uL ESR (0-15) mm/hr BUN 24 H (9-20) mg/dL ALT (21-72) U/L C-Reactive Protein (<10.0) mg/L Total Protein 5.6 L (6.3-8.2) g/dL Albumin 3.1 L (3.5-5.0) g/dL Assessment and Plan Plan: 1 large decub sacral ulcer has not been healed with outpatient treatment. Will continue vancomycin and Zosyn, infectious disease is on consult, cultures are pending, surgery is on consult, ulcer may need debridment. 2 recurrent abdominal pain with worsening symptom with ventral hernia with multiple scar tissue from previous surgery consult general surgery see if there is any benefit of the further management and if need repeat CAT scan of the abdomen again. 3 Altered mental status: Most likely combination of his current medication along with the decub sacral ulcer and infection try to treat underlying disease look for secondary infection if possible. CT showed chronic changes, neurology is on consult, EEG done today, pending results. 4 advance Parkinson disease: Patient has been on Requip along with amantadine and Sinemet has been seen Dr. Calderon on regular basis. 5 chronic edema: Has been on Lasix continue medication. 6 severe GERD has been on Protonix 40 mg daily. 7 debility: With his current condition will consult [facility] patient might benefit from going to [facility]. 8 BPH: Resume Proscar at 5 mg daily. 9 DVT prophylaxis: Patient will be on heparin 5000 units subcutaneous twice a day. CODE STATUS: Full code. Expectation from this admission: Patient be in the hospital for more than 2 nights. The above impression and plan of care have been discussed and directed by signing physician. Yeimi Pichardo nurse practitioner acting as scribe for signing physician.
[2017-03-03] MEDS: diphenhydrAMINE 50 MG CAP PO SCH (21:12)
--- NOTE | 2017-03-03 21:33 | P.CONS ---
History of Present Illness - Reason for Consult Consult date: 03/03/17 - Chief Complaint Nonhealing ulcer - History of Present Illness 82-year-old male presents to Hospital with difficulty with nonhealing ulceration to his coccyx and buttocks. His been cared for in the outpatient setting. Apparently despite multiple interventions most related with Dakin's it has not been healing. Consequently the ulceration and difficulties with his ostomy he was brought in the hospital. The patient has Parkinson's disease, moderately severe but is able to feed himself, but does have dementia. He is comfortable and calm tonight. No difficulty with his dinner excepts takes him quite a long time to try to eat. He is denying any significant discomfort. Relates the ulcer is not painful. It is not noted these any fevers, chills or rigors. Review of Systems HEENT:Denies headache or acute visual change. Denies sinus or mouth discomforts. Denies neck stiffness or pain. Denies significant oral cavity pain. Denies difficulty on swallowing. Lungs: Denies significant shortness of breath, cough, sputum production, or hemoptysis. Cardiovascular: Denies significant shortness of breath, chest pain, chest wall pain, orthopnea, dyspnea on exertion, syncope Gastrointestinal:Denies nausea, vomiting, diarrhea, constipation, hematemesis, melena, hematochezia. No no significant change of bowel habit noticed. Musculoskeletal: denies significant myalgias or arthralgias. No new joint swelling. Denies new back pain. Skin: Denies new rash or lesions. No new ulcers or wounds are related.. Neuro: Denies headache or seizure but does have difficulties with his movement disorder from his Parkinson's Psychiatric:Denies anxiety or depression. Endocrine: Has fatigue and has had some weight loss over time Past Medical History Past Medical History: Dementia Additional Past Medical History / Comment(s): HYPOTENSION, parkinsons, herniated intestine History of Any Multi-Drug Resistant Organisms: None Reported Past Surgical History: Orthopedic Surgery Additional Past Surgical History / Comment(s): LEFT HIP REPLACEMENT AND BACK SURGERY, COLOSTOMY BAG, bilateral rotator cuff Past Anesthesia/Blood Transfusion Reactions: No Reported Reaction Past Psychological History: No Psychological Hx Reported Additional Psychological History / Comment(s): 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 Retired from the [employer]. experience with the [employer] stationed in [place]. No international travel since the . No current tobacco or alcohol use. 4 adult children. No animal exposures Smoking Status: Former smoker Past Alcohol Use History: None Reported Past Drug Use History: None Reported Medications and Allergies Home Medications and Allergies Comment(s): Current Medications Acetaminophen/Codeine Phosphate (Tylenol #3) 1 each PO QID PRN PRN Reason: Pain Last Admin: 03/03/17 04:45 Dose: 1 each Amantadine HCl (Symmetrel) 100 mg PO BID [facility] Last Admin: 03/03/17 21:12 Dose: 100 mg Benzonatate (Tessalon Perles) 100 mg PO TID [facility] Last Admin: 03/03/17 21:13 Dose: 100 mg Carbidopa/Levodopa (Sinemet 25-100) 2 each PO TID [facility] Last Admin: 03/03/17 21:13 Dose: 2 each Diphenhydramine HCl (Benadryl) 50 mg PO HS [facility] Last Admin: 03/03/17 21:12 Dose: 50 mg Finasteride (Proscar) 5 mg PO DAILY [facility] Last Admin: 03/03/17 08:58 Dose: 5 mg Furosemide (Lasix) 20 mg PO [id number] [facility] Last Admin: 03/03/17 08:58 Dose: 20 mg Heparin Sodium (Porcine) (Heparin) 5,000 unit SQ Q12HR [facility] Last Admin: 03/03/17 21:11 Dose: 5,000 unit Piperacillin/Tazobactam/ (Dextrose 3.375 gm/ IV Solution) 50 mls @ 12.5 mls/hr IVPB Q8HR [facility] Last Admin: 03/03/17 17:15 Dose: 12.5 mls/hr Sodium Chloride (Saline 0.9%) 1,000 mls @ 75 mls/hr IV .[id number] [facility] Last Admin: 03/03/17 19:43 Dose: Not Given Vancomycin HCl 1,250 mg/ (Sodium Chloride) 250 mls @ 125 mls/hr IVPB Q16H [facility] Last Admin: 03/03/17 08:56 Dose: 125 mls/hr Lactulose (Cephulac) 10 gm PO DAILY [facility] Last Admin: 03/03/17 13:26 Dose: 10 gm Multivitamins (Theragran) 1 each PO DAILY@1200 [facility] Last Admin: 03/03/17 12:11 Dose: 1 each Pantoprazole Sodium (Protonix) 40 mg PO -BRKFST [facility] Ropinirole HCl (Requip) 4 mg PO TID [facility] Last Admin: 03/03/17 21:14 Dose: 4 mg Silver Sulfadiazine (Silvadene Cream) 1 applic TOPICAL BID [facility] Last Admin: 03/03/17 21:11 Dose: 1 applic Home Medications Medication Instructions Recorded Confirmed Type Acetaminophen-Codeine 300-30mg 1 tab PO QID PRN 04/01/16 03/02/17 History [Tylenol w/codeine #3] Amantadine HCl [Symmetrel] 100 mg PO BID 04/01/16 03/02/17 History Carbidopa-Levodopa 25-100 mg 2 tab PO TID 04/01/16 03/02/17 History [Sinemet 25-100 mg] Dutasteride [Avodart] 0.5 mg PO DAILY 04/01/16 03/02/17 History Furosemide [Lasix] 20 mg PO [id number] 04/01/16 03/02/17 History Multivitamins, Thera [Multivitamin 1 tab PO DAILY 04/01/16 03/02/17 History (formulary)] [place]-3 Fatty Acids/Fish Oil [Fish 1 cap PO DAILY 04/01/16 03/02/17 History Oil 1,000 mg Softgel] Pantoprazole Sodium [Protonix] 40 mg PO DAILY 04/01/16 03/02/17 History diphenhydrAMINE [Benadryl] 50 mg PO HS 04/01/16 03/02/17 History rOPINIRole HCL [Requip] 4 mg PO TID 04/01/16 03/02/17 History Benzonatate [Tessalon Perles] 100 mg PO TID 11/05/16 03/02/17 History Lactulose 10 gm PO DAILY 11/05/16 03/02/17 History Allergies Allergy/AdvReac Type Severity Reaction Status Date / Time oxycodone [From OxyContin] Allergy Rash/Hives Verified 03/02/17 15:23 morphine AdvReac Diaphoresis Verified 03/02/17 15:23 Physical Exam Vitals: Vital Signs Temp Pulse Resp BP Pulse Ox 03/03/17 20:00 97.9 F 91 18 100/57 95 09/12/17 08:20 74 H 03/03/17 06:50 97.6 F 60 18 126/74 96 03/02/17 23:51 97.6 F 63 16 114/65 96 Intake and Output 03/03/17 03/03/17 03/03/17 06:59 14:59 22:59 Intake Total 450 1402 Output Total 250 Balance 450 1152 Intake: Intake, IV Titration 100 862 Amount Piperacillin-Tazobactam 3 100 50 .375 gm In Dextrose/Water 1 50ml.bag @ 12.5 mls/hr IVPB Q8HR FAM Rx#: [id number] Sodium Chloride 0.9% 1, 562 000 ml @ 75 mls/hr IV . [id number] FAM Rx#:[id number] Vancomycin 1,250 mg In 250 Sodium Chloride 0.9% 250 ml @ 125 mls/hr IVPB Q16H FAM Rx#:[id number] Oral 350 540 Output: Stool 250 Other: # Voids 2 Weight 65.317 kg Patient Weight 03/04/17 06:59 Weight 65.317 kg Pleasant 82-year-old male that has evidence of the movement disorder consistent with Parkinson's. Despite this is able to slowly feed himself with only minimal difficulty HEENT: Anicteric conjunctiva are pink and moist nasal mucosa grossly intact without significant lesions, there is no thrush. No tenderness to the bilateral mastoids Neck: The neck is supple without significant lymphadenopathy or thyromegaly. Lungs: Symmetrical bilateral air entry without significant crackles or wheezing. There is no significant bronchial sounds. There is no egophony or dullness. Heart: Irregular with an audible S1 and S2 soft S4 There is no significant murmur click or rub, PMI was nondisplaced. Abdomen: Positive bowel sounds soft and nontender without palpable masses or organomegaly. There was no guarding or rebound. Extremities: The upper extremities have excellent pulses they are symmetric, no significant petechiae or telangiectasia. No splinter hemorrhages were noted. The lower extremities are free from significant edema. The peripheral pulses were 2+ and symmetric. Neuro: The patient is awake and alert oriented to person and place. He has evidence of the movement disorder with very slow motions in well control tremor at this time. Please see nursing photography for the extensive pressure ulceration to the coccyx area. It is noted there is tunneling. It is modestly clean. Results CBC & Chem 7: 03/03/17 07:28 03/03/17 07:28 Labs: Abnormal Lab Results - Last 24 Hours (Table) 03/03/17 03/03/17 03/03/17 Range/Units 07:28 07:28 07:28 WBC 11.3 H (3.8-10.6) k/uL RBC 4.02 L (4.30-5.90) m/uL Hgb 11.7 L (13.0-17.5) gm/dL Hct 37.1 L (39.0-53.0) % Neutrophils # 9.4 H (1.3-7.7) k/uL Lymphocytes # 0.7 L (1.0-4.8) k/uL BUN 24 H (9-20) mg/dL Total Protein 5.6 L (6.3-8.2) g/dL Albumin 3.1 L (3.5-5.0) g/dL Prealbumin 14.0 L (18.0-42.0) mg/dL Microbiology - Last 24 Hours (Table) 03/02/17 17:53 Blood Culture - Preliminary Blood No Growth after 24 hours 03/03/17 10:30 Wound Culture - Preliminary Buttock 03/03/17 10:30 Anaerobic Culture - Preliminary Buttock Laboratory Results WBC 11.3 k/uL (3.8-10.6) H 03/03/17 07:28 RBC 4.02 m/uL (4.30-5.90) L 03/03/17 07:28 Hgb 11.7 gm/dL (13.0-17.5) L 03/03/17 07:28 Hct 37.1 % (39.0-53.0) L 03/03/17 07:28 MCV 92.5 fL (80.0-100.0) 03/03/17 07:28 MCH 29.0 pg (25.0-35.0) 03/03/17 07:28 MCHC 31.4 g/dL (31.0-37.0) 03/03/17 07:28 RDW 14.2 % (11.5-15.5) 03/03/17 07:28 Plt Count 370 k/uL (150-450) 03/03/17 07:28 Neutrophils % 83 % 03/03/17 07:28 Lymphocytes % 6 % 03/03/17 07:28 Monocytes % 4 % 03/03/17 07:28 Eosinophils % 5 % 03/03/17 07:28 Basophils % 1 % 03/03/17 07:28 Neutrophils # 9.4 k/uL (1.3-7.7) H 03/03/17 07:28 Lymphocytes # 0.7 k/uL (1.0-4.8) L 03/03/17 07:28 Monocytes # 0.4 k/uL (0-1.0) 03/03/17 07:28 Eosinophils # 0.6 k/uL (0-0.7) 03/03/17 07:28 Basophils # 0.1 k/uL (0-0.2) 03/03/17 07:28 Hypochromasia Slight 03/03/17 07:28 ESR 35 mm/hr (0-15) H 03/02/17 15:18 Sodium 138 mmol/L (137-145) 03/03/17 07:28 Potassium 4.6 mmol/L (3.5-5.1) 03/03/17 07:28 Chloride 102 mmol/L (98-107) 03/03/17 07:28 Carbon Dioxide 28 mmol/L (22-30) 03/03/17 07:28 Anion Gap 8 mmol/L 03/03/17 07:28 BUN 24 mg/dL (9-20) H 03/03/17 07:28 Creatinine 0.82 mg/dL (0.66-1.25) 03/03/17 07:28 Est GFR (MDRD) Af Amer >60 (>60 ml/min/1.73 sqM) 03/03/17 07:28 Est GFR (MDRD) Non-Af >60 (>60 ml/min/1.73 sqM) 03/03/17 07:28 Glucose 83 mg/dL (74-99) 03/03/17 07:28 Calcium 8.7 mg/dL (8.4-10.2) 03/03/17 07:28 Total Bilirubin 0.7 mg/dL (0.2-1.3) 03/03/17 07:28 AST 20 U/L (17-59) 03/03/17 07:28 ALT 22 U/L (21-72) 03/03/17 07:28 Alkaline Phosphatase 80 U/L (38-126) 03/03/17 07:28 C-Reactive Protein 27.9 mg/L (<10.0) H 03/02/17 15:18 Total Protein 5.6 g/dL (6.3-8.2) L 03/03/17 07:28 Albumin 3.1 g/dL (3.5-5.0) L 03/03/17 07:28 Prealbumin 14.0 mg/dL (18.0-42.0) L 03/03/17 07:28 Microbiology 03/02/17 17:53 Blood Blood Culture - Preliminary No Growth after 24 hours 03/03/17 10:30 Buttock Wound Culture - Preliminary 03/03/17 10:30 Buttock Anaerobic Culture - Preliminary Assessment and Plan (1) Parkinson's disease dementia Status: Acute (2) Stage IV pressure ulcer of sacral region Narrative/Plan: 82-year-old male presents to Hospital with the significant pressure ulceration to the coccyx and sacral area. The area has been cleansed with Dakin solution and there is some granulation in the area. However is nonhealing and has tunneling. Surgical consult has been requested. Bone scan will be requested to determine if there is underlying bony infection. Assessment help further determine the course of antibiotic therapy. Currently being treated with Zosyn and vancomycin until culture data is available. He has an air mattress for offloading Protein level is low prealbumin is 14 and will need protein supplementation for healing. Unclear with the plan of therapy at time of his discharge. He may require surgical debridement and then would do well to have a specially offloading air mattress for his healing. Would also need a Roho or similar cushion for him to be sitting on in a chair to further assist in healing. If desired will be happy to follow-up and wound healing center and if he can be further improved maybe a candidate for more aggressive surgical intervention. 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 Status: Acute
[2017-03-04 07:58] LABS: Anion Gap 6 mmol/L; Blood Urea Nitrogen 19 mg/dL (9-20); Calcium 8.7 mg/dL (8.4-10.2); Carbon Dioxide 27 mmol/L (22-30); Chloride 106 mmol/L (98-107); Glucose 76 mg/dL (74-99); Non-African American GFR(MDRD) >60 (>60 ml/min/1.73 sqM); Potassium 4.3 mmol/L (3.5-5.1); Sodium 139 mmol/L (137-145)
[2017-03-04] MEDS: AMANTADINE HCL 100 MG CAP PO SCH ×2 (08:01→20:59)
[2017-03-04] MEDS: CARBIDOPA-LEVODOPA 25-100 MG 1 EACH TAB PO SCH ×3 (08:02→18:05)
[2017-03-04] MEDS: FUROSEMIDE 20 MG TAB PO SCH (08:02)
[2017-03-04] MEDS: BENZONATATE 100 MG CAP PO SCH ×3 (08:03→18:05)
[2017-03-04] MEDS: PANTOPRAZOLE 40 MG TABLET PO SCH (08:04)
[2017-03-04] MEDS: FINASTERIDE 5 MG TAB PO SCH (08:04)
[2017-03-04] MEDS: LACTULOSE 20 GM/30 ML CUP PO SCH (08:05)
[2017-03-04] MEDS: HEPARIN SODIUM,PORCINE 5,000 UNIT/ML 1 ML VIAL SQ SCH ×2 (08:05→21:00)
[2017-03-04] MEDS: rOPINIRole HCL 4 MG TABLET PO SCH ×3 (08:11→18:05)
[2017-03-04] MEDS: PIPERACILLIN-TAZOBACTAM 3.375 GM in DEXTROSE/WATER 1 50ML.BAG IVPB SCH ×2 (08:20→16:24)
[2017-03-04] MEDS: SODIUM CHLORIDE 0.9% 1,000 ML IV SCH (08:21)
--- NOTE | 2017-03-04 08:57 | P.PN ---
Lazaro Jimenez is a 82-year-old right-handed white male who was seen in neurology consultation yesterday for evaluation of altered mental status. Patient has a known history of underlying Parkinson's disease. He was noted yesterday is having increasing episodes of confusion and disorientation. He was seen in neurology consultation yesterday and did seem to be appropriate for his age. He was answering questions appropriately. We did recommend the patient undergo a CAT scan of the brain for further evaluation and comparison to her previous study done 2 years ago. His previous CAT scan of the brain did reveal evidence of cortical atrophy with some frontotemporal atrophy noted bilaterally. We are awaiting a computed tomography scan of the brain to be done today for further assessment. Patient was sent for routine EEG today which will be reviewed and read later today. Patient does seem to be resting comfortably. His Parkinson's condition remains very stable on his current medications. He was seen by surgery and Dr. Fontanez has evaluated his decubitus ulcer and colostomy hernia and things appeared to be stable. The patient has been appropriate this morning according to the nursing staff. He has been answering questions appropriately. He does not appear to be acutely confused or disoriented this morning. Patient was able to undergo computed tomography scan of the brain late this evening. CAT scan report indicates extensive degenerative and nonspecific white matter changes suggesting microvascular ischemia. This is compared to her previous CAT scan done on 12/30. Patient was able to complete a routine EEG today as well. EEG was reviewed today and is within normal limits for the patient's age. As noted he is showing increase improvement in his overall mental status today as compared to yesterday. His speech is more clear today and he seems to be oriented appropriately. Patient may be considered for possible discharge home later today. We will continue close neurological follow-up of this patient during this admission. Objective - Vital Signs Vital signs: Vital Signs Temp 97.8 F 03/04/17 07:11 Pulse 57 L 03/04/17 07:11 Resp 18 03/04/17 07:11 BP 124/63 03/04/17 07:11 Pulse Ox 97 03/04/17 07:11 Intake & Output 03/03/17 03/04/17 03/04/17 18:59 06:59 18:59 Intake Total 1402 Output Total 250 Balance 1152 Weight 65.317 kg Intake: Intake, IV Titration 862 Amount Piperacillin-Tazobactam 3 50 .375 gm In Dextrose/Water 1 50ml.bag @ 12.5 mls/hr IVPB Q8HR [facility] Rx#: [id number] Sodium Chloride 0.9% 1, 562 000 ml @ 75 mls/hr IV . [id number] [facility] Rx#:[id number] Vancomycin 1,250 mg In 250 Sodium Chloride 0.9% 250 ml @ 125 mls/hr IVPB Q16H [facility] Rx#:[id number] Oral 540 Output: Stool 250 Other: # Voids 1 - Exam Physical examination: PHYSICAL EXAMINATION: Patient is resting comfortably in bed. VITAL SIGNS: Blood pressure is [124/63]. Heart rate is [57]. Respiration is [18] . Temperature is [97.8]. HEENT: Head is atraumatic, neck is supple, there were no carotid bruits. CHEST: Lungs are clear to auscultation and percussion. CARDIAC: S1, S2 normal rate and rhythm. There is no murmur. ABDOMEN: Soft and nontender. Bowel sounds are present. EXTREMITIES: There is no pedal edema. Peripheral pulses are present. Neurological examination: Patient is resting comfortably in bed. He is alert and oriented 3. His speech is slow and at times slightly hesitant. He is following simple commands easily. His memory and intellectual function slightly impaired. Cranial nerve examination: Cranial nerves II through XII are grossly intact. Motor examination: Patient has no pronator drift. Muscle tone reveals minimal cogwheel rigidity in the upper extremities. Muscle strength testing is 4-/5 throughout. Sensory examination was intact. Deep tendon reflexes: The DTRs are 1+ and symmetric. Plantar responses flexor bilaterally. - Labs CBC & Chem 7: 03/03/17 07:28 03/04/17 06:47 Labs: Abnormal Lab Results - Last 24 Hours (Table) 03/03/17 Range/Units 07:28 Prealbumin 14.0 L (18.0-42.0) mg/dL Microbiology - Last 24 Hours (Table) 03/03/17 10:30 Gram Stain - Preliminary Buttock Wound Culture - Preliminary 03/02/17 17:53 Blood Culture - Preliminary Blood No Growth after 24 hours 03/03/17 10:30 Anaerobic Culture - Preliminary Buttock Assessment and Plan (1) Metabolic encephalopathy Status: Acute Code(s): G93.41 - METABOLIC ENCEPHALOPATHY (2) Parkinson's disease Status: Acute Code(s): G20 - PARKINSON'S DISEASE (3) Sacral decubitus ulcer Status: Acute Code(s): L89.159 - PRESSURE ULCER OF SACRAL REGION, UNSPECIFIED STAGE (4) Parkinson's disease dementia Status: Acute Code(s): G20 - PARKINSON'S DISEASE; F02.80 - DEMENTIA IN OTH DISEASES CLASSD ELSWHR W/O BEHAVRL DISTURB Plan: This patient is a pleasant 82-year-old right-handed white male who is being evaluated for altered mental status and mild confusion. Patient has multiple complex medical issues including a known history of underlying Parkinson's disease and mild memory loss. We have recommended a computed tomography scan of the brain to be done today and we're waiting this final report. He underwent a routine EEG earlier today and this will be reviewed and dictated later today as well. His Parkinson's condition remains very stable this morning. His mental status also seems slightly better than yesterday as well on his neurological assessment this afternoon. Would consider physical therapy evaluation for possible ongoing outpatient PT for treatment of his underlying Parkinson's condition. He apparently ambulates with the use of his walker and cane at home. He is to continue on his current Parkinson medications. Patient underwent computed tomography scan of the brain yesterday the results of which are noted above. CAT scan failed to reveal any new changes however there was extensive white matter ischemic changes noted bilaterally. He underwent a routine EEG which was reviewed today and is within normal limits for the patient 's age. The patient continues to show improvement in his overall mental status. He is being treated for sacral decubitus ulcer and was seen by infectious disease. He is to undergo a bone scan to rule out osteomyelitis. We will await further recommendations from infectious disease. We will continue close neurological follow-up for this patient during this admission. His overall prognosis at this time remains guarded. Patient may be considered for discharge home possibly later today. We will continue close neurological follow-up for this patient during this admission.
--- NOTE | 2017-03-04 11:36 | EEG ---
ELECTROENCEPHALOGRAM REPORT DATE OF SERVICE: 03/03/2017 ELECTROENCEPHALOGRAPHIC EXAMINATION: INDICATION FOR EXAMINATION: This patient is an 82-year-old male with history of Parkinson's disease. Patient admitted for sepsis and altered mental status. AGE: [age] years old. EEG FINDINGS: A routine 21 channel awake digital EEG recording was accomplished utilizing the 10 - 20 international system with bipolar and referential montages. The background activity in the most alert resting state consists of a low to medium amplitude, fairly well- developed well sustained 7 - 8 hertz activity over the posterior head regions. This posterior rhythm attenuates to eye opening. There is a small amount of low amplitude 18 - 20 hertz beta activity seen maximally over the anterior head regions. Muscle and movement artifact was observed on a few occasions during the tracing. Hyperventilation was not performed. Photic stimulation and flash frequencies of 2 - 30 hertz produced a minimal occipital driving response. No epileptiform discharges were seen. IMPRESSION: This EEG is within normal limits for the patient's age. The EEG failed to reveal any focal, lateralized, or epileptiform abnormalities. Clinical correlation is recommended. MMODL / IJN: [id number] /
--- NOTE | 2017-03-04 11:50 | P.PN ---
Subjective 82-year-old male debilitated with multiple medical problem had developed decub ulcer for the last few weeks with failure to outpatient treatment has been doing much worse was brought to the hospital as a direct admit was start him on IV antibiotics with Zosyn and vancomycin might require 1 VAC and wound care for the next few weeks. Culture will be done patient also has been complaining of increased abdominal pain with nausea and vomiting with significant recurrent abdominal hernia with his ostomy in the past. Also patient had slight change mental status not been able to ambulate and walk has been having episode of worsening confusion on and off lately. [place] patient has been declining in weight gradually he lost quite bed in the last few month his appetite is down and has been having more trouble with his bowels. 03/03: The patient was seen and evaluated today, he was noted to be sitting up in the bed resting comfortably with his caregiver at the bedside. Dr Berg was consulted for his acute mental status changes and confusion. EEG was ordered and performed, pending results. CT head showed chronic nonspecific white matter changes that is similar to prior exams. Surgery on consult for his herniated ostomy and sacral decubitis ulcer, may need debridement. 03/04: Patient noted to be resting comfortably in bed today. He was consulted by Dr. Ryan yesterday who recommended to continue Zosyn and vancomycin until culture are back. Currently wound cultures are still pending, blood cultures show no growth to date, a bone scan may be done to rule out osteomyelitis. Objective - Vital Signs Vital signs: Vital Signs Temp 97.8 F 03/04/17 07:11 Pulse 57 L 03/04/17 07:11 Resp 18 03/04/17 07:11 BP 124/63 03/04/17 07:11 Pulse Ox 97 03/04/17 07:11 Intake & Output 03/03/17 03/04/17 03/04/17 18:59 06:59 18:59 Intake Total 1402 Output Total 250 Balance 1152 Weight 65.317 kg Intake: Intake, IV Titration 862 Amount Piperacillin-Tazobactam 3 50 .375 gm In Dextrose/Water 1 50ml.bag @ 12.5 mls/hr IVPB Q8HR [facility] Rx#: [id number] Sodium Chloride 0.9% 1, 562 000 ml @ 75 mls/hr IV . [id number] FAM Rx#:[id number] Vancomycin 1,250 mg In 250 Sodium Chloride 0.9% 250 ml @ 125 mls/hr IVPB Q16H [facility] Rx#:[id number] Oral 540 Output: Stool 250 Other: # Voids 1 - Exam - Constitutional General appearance: no average body habitus, cooperative, no disheveled, no mild distress, no morbidly obese, no acute distress, no obese, no severe distress, no thin - EENT Eyes: no abnormal pupil, no anicteric sclerae, no disc margins sharp, no edentulous, no EOMI, no PERRLA, no fundus normal, no photophobia, no dentition normal, no poor dentition, no ptosis, no scleral icterus, normal appearance ENT: hard of hearing, no hearing grossly normal, no NA/AT, no normal oropharynx , no other, no pharyngeal erythema, no thrush, no tonsillar exudates, no tonsillar swelling Ears: bilateral: normal - Neck Neck: no lymphadenopathy, normal ROM, no other, no rigidity, no stridor, no thyromegaly Carotids: bilateral: upstroke normal Thyroid: bilateral: normal size - Respiratory Respiratory: bilateral: diminished, dullness - Cardiovascular Rhythm: regular Heart sounds: normal: S1, S2 Abnormal Heart Sounds: S3 Gallop - Gastrointestinal Ostomy in the left side with moderate size of hernia bulging out slight tenderness the area around it with no growth or tumor can be found. Multiple scar tissue in his abdominal region from multiple surgery. With his exam is ostomy blowout at the time and has mild leak. No bloody or black stool found. General gastrointestinal: no absent bowel sounds, decreased bowel sounds, distended, no hepatomegaly, no hyperactive bowel sounds, no normal bowel sounds , organomegaly, no rigid, no scaphoid, no soft, no splenomegaly, no tenderness, umbilical hernia, ventral hernia - Integumentary Sacral area has an open spot been pack measure 3 time 4 cm in depth with slight irritation in the soft tissue in the area around it but mild the irritation and drainage. Integumentary: no calor, cellulitis, no cyanotic, decreased turgor, flushed, no jaundiced, no normal, no normal turgor, pale, rash, no ulcer - Neurologic Neurologic: CNII-XII intact - Musculoskeletal Musculoskeletal: no gait normal, no generalized weakness, no strength equal bilaterally, no right sided weakness, no left sided weakness - Psychiatric Psychiatric: no A&O x's 3, no appropriate affect, no intact judgment & insight - Labs CBC & Chem 7: 03/03/17 07:28 03/04/17 06:47 Labs: Abnormal Lab Results - Last 24 Hours (Table) 03/03/17 Range/Units 07:28 Prealbumin 14.0 L (18.0-42.0) mg/dL Microbiology - Last 24 Hours (Table) 03/03/17 10:30 Gram Stain - Preliminary Buttock Wound Culture - Preliminary 03/02/17 17:53 Blood Culture - Preliminary Blood No Growth after 24 hours 03/03/17 10:30 Anaerobic Culture - Preliminary Buttock Assessment and Plan Plan: 1 large decub sacral ulcer has not been healed with outpatient treatment. Will continue vancomycin and Zosyn, infectious disease is on consult, cultures are pending, surgery is on consult, ulcer may need debridment. 2 recurrent abdominal pain with worsening symptom with ventral hernia with multiple scar tissue from previous surgery consult general surgery see if there is any benefit of the further management and if need repeat CAT scan of the abdomen again. 3 Altered mental status: Most likely combination of his current medication along with the decub sacral ulcer and infection try to treat underlying disease look for secondary infection if possible. CT showed chronic changes, neurology is on consult. 4 advance Parkinson disease: Patient has been on Requip along with amantadine and Sinemet has been seen Dr. Calderon on regular basis. 5 chronic edema: Has been on Lasix continue medication. 6 severe GERD has been on Protonix 40 mg daily. 7 debility: With his current condition will consult PT/OT patient might benefit from going to assisted rehab. 8 BPH: Resume Proscar at 5 mg daily. 9 DVT prophylaxis: Patient will be on heparin 5000 units subcutaneous twice a day. CODE STATUS: Full code. The above impression and plan of care have been discussed and directed by signing physician. Yeimi Pichardo nurse practitioner acting as scribe for signing physician.
[2017-03-04] MEDS: MULTIVITAMINS, THERA 1 EACH TAB PO SCH (13:00)
--- NOTE | 2017-03-04 13:51 | NM ---
EXAMINATION TYPE: NM bone 3 phase DATE OF EXAM: 03/04/2017 COMPARISON: NONE HISTORY: Osteomyelitis of pelvis Triple phase bone scintigraphy was performed following the injection of24.4 mCi Tc 99m MDP. Immediat e images and 4.5 hours post injection images acquired. Note is made of urine contamination. FINDINGS: There is no significant abnormal accumulation of radiotracer to suggest osteomyelitis. Degenerative u ptake about the lumbar spine and bilateral hips. IMPRESSION: No scintigraphic evidence of osteomyelitis at this time.
--- NOTE | 2017-03-04 15:53 | P.PN ---
Subjective Pleasant 82-year-old gentleman being seen on rounds this morning is sitting up on the edge of the bed and the son is at the bedside patient is hard of hearing. Patient's pleasant cooperative. Patients being followed by surgical service at the request of the attending for management of a sacral decubitus ulcer with no evidence of a need for debridement at this time. Cultures of the wound are currently pending and infectious disease is participating in the plan of care. Objective - Vital Signs Vital signs: Vital Signs Temp 98 F 03/04/17 11:07 Pulse 97 03/04/17 15:01 Resp 18 03/04/17 11:07 BP 125/98 03/04/17 15:01 Pulse Ox 98 03/04/17 15:01 Intake & Output 03/03/17 03/04/17 03/04/17 18:59 06:59 18:59 Intake Total 1402 1300 Output Total 250 425 Balance 1152 875 Weight 65.317 kg Intake: Intake, IV Titration 862 1300 Amount Piperacillin-Tazobactam 3 50 50 .375 gm In Dextrose/Water 1 50ml.bag @ 12.5 mls/hr IVPB Q8HR [facility] Rx#: [id number] Sodium Chloride 0.9% 1, 562 1000 000 ml @ 75 mls/hr IV . [id number] FAM Rx#:[id number] Vancomycin 1,250 mg In 250 250 Sodium Chloride 0.9% 250 ml @ 125 mls/hr IVPB Q16H [facility] Rx#:[id number] Oral 540 Output: Urine 75 Stool 250 350 Other: # Voids 1 - Exam Physical exam 82-year-old male sitting up on the edge of the bed pleasant oriented 3 appears in no acute distress Lungs essentially clear with adequate air movement bilaterally no cough noted Heart S1-S2 audible regular no murmur noted Abdomen ostomy in the left side not able to appreciate a hernia bulging at this time stoma pink moderate amount stooling in the ostomy bag. There are multiple abdominal scar tissue from prior abdominal surgeries states urinating no difficulty no reports of nausea vomiting Extremities no pedal edema noted skin Sacral decubitus ulcer currently has plain iodoform packing in place soft pink tissue around the site. There is no active drainage noted no odor noted - Labs CBC & Chem 7: 03/03/17 07:28 03/04/17 06:47 Labs: Microbiology - Last 24 Hours (Table) 03/03/17 10:30 Gram Stain - Preliminary Buttock Wound Culture - Preliminary 03/02/17 17:53 Blood Culture - Preliminary Blood No Growth after 24 hours 03/03/17 10:30 Anaerobic Culture - Preliminary Buttock Assessment and Plan Plan: Impression Present on admission sacral decubitus ulcer nonhealing measures 2 cm in length 1.5 cm with Chronic debility Severe esophageal reflex Advanced Parkinson's disease Reoccurring abdominal pain with history of multiple hernias with no surgical approach History of a bowel resection with an ostomy greater than 10 year prior History of reoccurring multiple abdominal hernias reducible Bone scan obtained on March 04 show no evidence of osteomyelitis at this time Plan Wound care per infectious disease no evidence of an acute surgical abdomen No indication for debridement of the sacral decubitus ulcer at this time DVT and GI prophylaxis Resume home meds as appropriate defer to medicine to manage Further surgical recommendations pending clinical course The above impression and plan of care have been discussed and directed by signing physician. Jen Mcpherson nurse practitioner acting as scribe for signing physician.
[2017-03-04] MEDS: VANCOMYCIN 1,250 MG in SODIUM CHLORIDE 0.9% 250 ML IVPB SCH (16:24)
[2017-03-04] MEDS: diphenhydrAMINE 50 MG CAP PO SCH (20:59)
--- NOTE | 2017-03-04 22:08 | P.PN ---
Subjective Principal diagnosis: Nonhealing ulcer 82-year-old male presents to Hospital with difficulty with nonhealing ulceration to his coccyx and buttocks. His been cared for in the outpatient setting. Apparently despite multiple interventions most related with Dakin's it has not been healing. Consequently the ulceration and difficulties with his ostomy he was brought in the hospital. The patient has Parkinson's disease, moderately severe but is able to feed himself, but does have dementia. He is comfortable and calm tonight. No difficulty with his dinner excepts takes him quite a long time to try to eat. He is denying any significant discomfort. Relates the ulcer is not painful. It is not noted these any fevers, chills or rigors. Better today Objective - Vital Signs Vital signs: Vital Signs Temp 96.9 F L 03/04/17 19:00 Pulse 74 03/04/17 19:00 Resp 16 03/04/17 20:11 BP 126/58 03/04/17 19:00 Pulse Ox 97 03/04/17 19:00 Intake & Output 03/04/17 03/04/17 03/05/17 06:59 18:59 06:59 Intake Total 1300 Output Total 425 200 Balance 875 -200 Intake: Intake, IV Titration 1300 Amount Piperacillin-Tazobactam 3 50 .375 gm In Dextrose/Water 1 50ml.bag @ 12.5 mls/hr IVPB Q8HR FAM Rx#: [id number] Sodium Chloride 0.9% 1, 1000 000 ml @ 75 mls/hr IV . [id number] FAM Rx#:[id number] Vancomycin 1,250 mg In 250 Sodium Chloride 0.9% 250 ml @ 125 mls/hr IVPB Q16H FAM Rx#:[id number] Output: Urine 75 Stool 350 200 Other: Voiding Method Urinal # Voids 1 - Exam Pleasant 82-year-old male that has evidence of the movement disorder consistent with Parkinson's. HEENT: Anicteric conjunctiva are pink and moist nasal mucosa grossly intact without significant lesions, there is no thrush. No tenderness to the bilateral mastoids Neck: The neck is supple without significant lymphadenopathy or thyromegaly. Lungs: Symmetrical bilateral air entry without significant crackles or wheezing. There is no significant bronchial sounds. There is no egophony or dullness. Heart: Irregular with an audible S1 and S2 soft S4 There is no significant murmur click or rub, PMI was nondisplaced. Abdomen: Positive bowel sounds soft and nontender without palpable masses or organomegaly. There was no guarding or rebound. Extremities: The upper extremities have excellent pulses they are symmetric, no significant petechiae or telangiectasia. No splinter hemorrhages were noted. The lower extremities are free from significant edema. The peripheral pulses were 2+ and symmetric. Neuro: The patient is awake and alert oriented to person and place. He has evidence of the movement disorder with very slow motions in well control tremor at this time. Please see nursing photography for the extensive pressure ulceration to the coccyx area. It is noted there is tunneling. It is modestly clean. - Labs CBC & Chem 7: 03/03/17 07:28 03/04/17 06:47 Labs: Microbiology - Last 24 Hours (Table) 03/02/17 17:53 Blood Culture - Preliminary Blood No Growth after 48 hours 03/03/17 10:30 Gram Stain - Preliminary Buttock Wound Culture - Preliminary 03/03/17 10:30 Anaerobic Culture - Preliminary Buttock Laboratory Results WBC 11.3 k/uL (3.8-10.6) H 03/03/17 07:28 RBC 4.02 m/uL (4.30-5.90) L 03/03/17 07:28 Hgb 11.7 gm/dL (13.0-17.5) L 03/03/17 07:28 Hct 37.1 % (39.0-53.0) L 03/03/17 07:28 MCV 92.5 fL (80.0-100.0) 03/03/17 07:28 MCH 29.0 pg (25.0-35.0) 03/03/17 07:28 MCHC 31.4 g/dL (31.0-37.0) 03/03/17 07:28 RDW 14.2 % (11.5-15.5) 03/03/17 07:28 Plt Count 370 k/uL (150-450) 03/03/17 07:28 Neutrophils % 83 % 03/03/17 07:28 Lymphocytes % 6 % 03/03/17 07:28 Monocytes % 4 % 03/03/17 07:28 Eosinophils % 5 % 03/03/17 07:28 Basophils % 1 % 03/03/17 07:28 Neutrophils # 9.4 k/uL (1.3-7.7) H 03/03/17 07:28 Lymphocytes # 0.7 k/uL (1.0-4.8) L 03/03/17 07:28 Monocytes # 0.4 k/uL (0-1.0) 03/03/17 07:28 Eosinophils # 0.6 k/uL (0-0.7) 03/03/17 07:28 Basophils # 0.1 k/uL (0-0.2) 03/03/17 07:28 Hypochromasia Slight 03/03/17 07:28 ESR 35 mm/hr (0-15) H 03/02/17 15:18 Sodium 139 mmol/L (137-145) 03/04/17 06:47 Potassium 4.3 mmol/L (3.5-5.1) 03/04/17 06:47 Chloride 106 mmol/L (98-107) 03/04/17 06:47 Carbon Dioxide 27 mmol/L (22-30) 03/04/17 06:47 Anion Gap 6 mmol/L 03/04/17 06:47 BUN 19 mg/dL (9-20) 03/04/17 06:47 Creatinine 0.81 mg/dL (0.66-1.25) 03/04/17 06:47 Est GFR (MDRD) Af Amer >60 (>60 ml/min/1.73 sqM) 03/04/17 06:47 Est GFR (MDRD) Non-Af >60 (>60 ml/min/1.73 sqM) 03/04/17 06:47 Glucose 76 mg/dL (74-99) 03/04/17 06:47 Calcium 8.7 mg/dL (8.4-10.2) 03/04/17 06:47 Total Bilirubin 0.7 mg/dL (0.2-1.3) 03/03/17 07:28 AST 20 U/L (17-59) 03/03/17 07:28 ALT 22 U/L (21-72) 03/03/17 07:28 Alkaline Phosphatase 80 U/L (38-126) 03/03/17 07:28 C-Reactive Protein 27.9 mg/L (<10.0) H 03/02/17 15:18 Total Protein 5.6 g/dL (6.3-8.2) L 03/03/17 07:28 Albumin 3.1 g/dL (3.5-5.0) L 03/03/17 07:28 Prealbumin 14.0 mg/dL (18.0-42.0) L 03/03/17 07:28 Microbiology 03/02/17 17:53 Blood Blood Culture - Preliminary No Growth after 48 hours 03/03/17 10:30 Buttock Gram Stain - Preliminary 03/03/17 10:30 Buttock Wound Culture - Preliminary 03/03/17 10:30 Buttock Anaerobic Culture - Preliminary - Imaging and Cardiology bone scan without osteomyelitis Assessment and Plan (1) Parkinson's disease dementia Status: Acute (2) Stage IV pressure ulcer of sacral region Narrative/Plan: 82-year-old male presents to Hospital with the significant pressure ulceration to the coccyx and sacral area. The area has been cleansed with Dakin solution and there is some granulation in the area. However is nonhealing and has tunneling. Surgical consult has been requested. Bone scan will be requested to determine if there is underlying bony infection. Assessment help further determine the course of antibiotic therapy. Currently being treated with Zosyn and vancomycin until culture data is available. He has an air mattress for offloading Protein level is low prealbumin is 14 and will need protein supplementation for healing. Unclear with the plan of therapy at time of his discharge. Has been seen by surgery with no plan for surgical intervention, and then would do well to have a specially offloading air mattress for his healing. Would also need a Roho or similar cushion for him to be sitting on in a chair to further assist in healing. If desired will be happy to follow-up and wound healing center and if he can be further improved maybe a candidate for more aggressive surgical intervention. underlying osteomyelitis of the pelvis was not seen on bone scan, Cultures to direct antibiotic therapy for discharge. Status: Acute
[2017-03-05] MEDS: PIPERACILLIN-TAZOBACTAM 3.375 GM in DEXTROSE/WATER 1 50ML.BAG IVPB SCH ×3 (00:42→22:18)
[2017-03-05] MEDS ORDERED: VANCOMYCIN TROUGH DUE 1 EACH MISC MISCELLANE ONE (07:00)
[2017-03-05] MEDS: rOPINIRole HCL 4 MG TABLET PO SCH ×3 (08:00→17:45)
[2017-03-05] MEDS: CARBIDOPA-LEVODOPA 25-100 MG 1 EACH TAB PO SCH ×3 (08:00→17:45)
[2017-03-05] MEDS: BENZONATATE 100 MG CAP PO SCH ×3 (08:00→17:47)
[2017-03-05] MEDS: PANTOPRAZOLE 40 MG TABLET PO SCH (08:00)
[2017-03-05 08:05] LABS: Anion Gap 9 mmol/L; Blood Urea Nitrogen 14 mg/dL (9-20); Calcium 8.8 mg/dL (8.4-10.2); Carbon Dioxide 24 mmol/L (22-30); Chloride 108 mmol/L (98-107); Glucose 75 mg/dL (74-99); Non-African American GFR(MDRD) >60 (>60 ml/min/1.73 sqM); Potassium 4.2 mmol/L (3.5-5.1); Sodium 141 mmol/L (137-145)
[2017-03-05] MEDS: VANCOMYCIN 1,250 MG in SODIUM CHLORIDE 0.9% 250 ML IVPB SCH (08:38)
[2017-03-05] MEDS: FUROSEMIDE 20 MG TAB PO SCH (08:40)
[2017-03-05] MEDS: HEPARIN SODIUM,PORCINE 5,000 UNIT/ML 1 ML VIAL SQ SCH ×2 (08:41→22:00)
[2017-03-05] MEDS: FINASTERIDE 5 MG TAB PO SCH (08:41)
[2017-03-05] MEDS: AMANTADINE HCL 100 MG CAP PO SCH ×2 (08:42→22:00)
--- NOTE | 2017-03-05 08:50 | P.PN ---
Subjective 82-year-old male being seen this morning on rounds currently taking a diet. No family at bedside. Dr. barriga did speak with the patient and son at the bedside yesterday afternoon discussed treatment plan. At this time no surgical intervention for the sacral decubitus ulcer or umbilical hernia. The and son inform they will be moving to [place] within the next couple weeks to be closer to the patient's son Objective - Vital Signs Vital signs: Vital Signs Temp 98.2 F 03/05/17 08:34 Pulse 81 03/05/17 08:34 Resp 18 03/05/17 08:34 BP 115/63 03/05/17 08:34 Pulse Ox 96 03/05/17 08:34 Intake & Output 03/04/17 03/05/17 03/05/17 18:59 06:59 18:59 Intake Total 1300 1650 800 Output Total 425 550 675 Balance 875 1100 125 Intake: Intake, IV Titration 1300 1300 650 Amount Piperacillin-Tazobactam 3 50 50 50 .375 gm In Dextrose/Water 1 50ml.bag @ 12.5 mls/hr IVPB Q8HR FAM Rx#: [id number] Sodium Chloride 0.9% 1, 1000 1000 600 000 ml @ 75 mls/hr IV . [id number] FAM Rx#:[id number] Vancomycin 1,250 mg In 250 250 Sodium Chloride 0.9% 250 ml @ 125 mls/hr IVPB Q16H FAM Rx#:[id number] Oral 350 150 Output: Urine 75 350 275 Stool 350 200 400 Other: Voiding Method Urinal # Voids 2 - Exam Physical exam 82-year-old male sitting up in bed taking a diet this morning appears in no acute distress pleasant oriented 3 cooperative Lungs diminished at the bases otherwise adequate air movement Heart S1-S2 audible regular Abdomen ostomy left lower quadrant stool noted in the ostomy bag urinating without difficulty no reports of nausea vomiting Extremities no edema noted to the lower extremities Skin sacral decubitus ulcer with a dressing in place - Labs CBC & Chem 7: 03/03/17 07:28 03/05/17 06:52 Labs: Abnormal Lab Results - Last 24 Hours (Table) 03/05/17 Range/Units 06:52 Chloride 108 H (98-107) mmol/L Microbiology - Last 24 Hours (Table) 03/02/17 17:53 Blood Culture - Preliminary Blood No Growth after 48 hours Assessment and Plan Plan: Impression Present on admission stage IV sacral pressure ulcer sacral region nonhealing measures 2 cm in length 1.5 cm with Chronic debility Severe esophageal reflex Advanced Parkinson's disease Reoccurring abdominal pain with history of multiple hernias with no surgical approach History of a bowel resection with an ostomy greater than 10 year prior History of reoccurring multiple abdominal hernias reducible Bone scan obtained on March 04 show no evidence of osteomyelitis at this time Mild protein calorie malnutrition Plan Wound care per infectious disease no evidence of an acute surgical abdomen No indication for debridement of the sacral decubitus ulcer at this time DVT and GI prophylaxis Resume home meds as appropriate defer to medicine to manage Further surgical recommendations pending clinical course The above impression and plan of care have been discussed and directed by signing physician. Jen Mcpherson nurse practitioner acting as scribe for signing physician.
[2017-03-05] MEDS: LACTULOSE 20 GM/30 ML CUP PO SCH (09:05)
--- NOTE | 2017-03-05 10:48 | P.PN ---
Subjective 82-year-old male debilitated with multiple medical problem had developed decub ulcer for the last few weeks with failure to outpatient treatment has been doing much worse was brought to the hospital as a direct admit was start him on IV antibiotics with Zosyn and vancomycin might require 1 VAC and wound care for the next few weeks. Culture will be done patient also has been complaining of increased abdominal pain with nausea and vomiting with significant recurrent abdominal hernia with his ostomy in the past. Also patient had slight change mental status not been able to ambulate and walk has been having episode of worsening confusion on and off lately. [place] patient has been declining in weight gradually he lost quite bed in the last few month his appetite is down and has been having more trouble with his bowels. 03/03: The patient was seen and evaluated today, he was noted to be sitting up in the bed resting comfortably with his caregiver at the bedside. Dr Berg was consulted for his acute mental status changes and confusion. EEG was ordered and performed, pending results. CT head showed chronic nonspecific white matter changes that is similar to prior exams. Surgery on consult for his herniated ostomy and sacral decubitis ulcer, may need debridement. 03/04: Patient noted to be resting comfortably in bed today. He was consulted by Dr. Ryan yesterday who recommended to continue Zosyn and vancomycin until culture are back. Currently wound cultures are still pending, blood cultures show no growth to date, a bone scan may be done to rule out osteomyelitis. 03/05: Patient was seen and evaluated, he was noted to be sitting up in bed resting comfortably. Patient is consulted by infectious disease, decision is to not do debridement of the wound at this time. Wound and blood cultures are still pending. Bone scan did not show any evidence for osteomyelitis. EEG was normal. Currently the plan is to move patient to a rehab facility with possibility for snf care. His is looking into rehab facilities with possibilities to moving him to [place] where they will be residing. The patient continues on IV Zosyn and vancomycin. Objective - Vital Signs Vital signs: Vital Signs Temp 97.7 F 03/05/17 08:50 Pulse 69 03/05/17 08:50 Resp 18 03/05/17 08:50 BP 110/69 03/05/17 08:50 Pulse Ox 98 03/05/17 08:50 Intake & Output 03/04/17 03/05/17 03/05/17 18:59 06:59 18:59 Intake Total 1300 1650 800 Output Total 425 550 675 Balance 875 1100 125 Intake: Intake, IV Titration 1300 1300 650 Amount Piperacillin-Tazobactam 3 50 50 50 .375 gm In Dextrose/Water 1 50ml.bag @ 12.5 mls/hr IVPB Q8HR FAM Rx#: [id number] Sodium Chloride 0.9% 1, 1000 1000 600 000 ml @ 75 mls/hr IV . [id number] FAM Rx#:[id number] Vancomycin 1,250 mg In 250 250 Sodium Chloride 0.9% 250 ml @ 125 mls/hr IVPB Q16H FAM Rx#:[id number] Oral 350 150 Output: Urine 75 350 275 Stool 350 200 400 Other: Voiding Method Urinal # Voids 2 - Exam - Constitutional General appearance: no average body habitus, cooperative, no disheveled, no mild distress, no morbidly obese, no acute distress, no obese, no severe distress, no thin - EENT Eyes: no abnormal pupil, no anicteric sclerae, no disc margins sharp, no edentulous, no EOMI, no PERRLA, no fundus normal, no photophobia, no dentition normal, no poor dentition, no ptosis, no scleral icterus, normal appearance ENT: hard of hearing, no hearing grossly normal, no NA/AT, no normal oropharynx , no other, no pharyngeal erythema, no thrush, no tonsillar exudates, no tonsillar swelling Ears: bilateral: normal - Neck Neck: no lymphadenopathy, normal ROM, no other, no rigidity, no stridor, no thyromegaly Carotids: bilateral: upstroke normal Thyroid: bilateral: normal size - Respiratory Respiratory: bilateral: diminished, dullness - Cardiovascular Rhythm: regular Heart sounds: normal: S1, S2 Abnormal Heart Sounds: S3 Gallop - Gastrointestinal Ostomy in the left side with moderate size of hernia bulging out slight tenderness the area around it with no growth or tumor can be found. Multiple scar tissue in his abdominal region from multiple surgery. With his exam is ostomy blowout at the time and has mild leak. No bloody or black stool found. General gastrointestinal: no absent bowel sounds, decreased bowel sounds, distended, no hepatomegaly, no hyperactive bowel sounds, no normal bowel sounds , organomegaly, no rigid, no scaphoid, no soft, no splenomegaly, no tenderness, umbilical hernia, ventral hernia - Integumentary Sacral area has an open spot been pack measure 3 time 4 cm in depth with slight irritation in the soft tissue in the area around it but mild the irritation and drainage. Integumentary: no calor, cellulitis, no cyanotic, decreased turgor, flushed, no jaundiced, no normal, no normal turgor, pale, rash, no ulcer - Neurologic Neurologic: CNII-XII intact - Musculoskeletal Musculoskeletal: no gait normal, no generalized weakness, no strength equal bilaterally, no right sided weakness, no left sided weakness - Psychiatric Psychiatric: no A&O x's 3, no appropriate affect, no intact judgment & insight - Labs CBC & Chem 7: 03/03/17 07:28 03/05/17 06:52 Labs: Abnormal Lab Results - Last 24 Hours (Table) 03/05/17 Range/Units 06:52 Chloride 108 H (98-107) mmol/L Microbiology - Last 24 Hours (Table) 03/02/17 17:53 Blood Culture - Preliminary Blood No Growth after 48 hours Assessment and Plan Plan: 1 large decub sacral ulcer has not been healed with outpatient treatment. Will continue vancomycin and Zosyn, infectious disease is on consult, cultures are pending, surgery is on consult, decision was to not debride wound at this time. 2 recurrent abdominal pain with worsening symptom with ventral hernia with multiple scar tissue from previous surgery consult general surgery, no surgical intervention at this time. 3 Altered mental status: Most likely combination of his current medication along with the decub sacral ulcer, metabolic encephalopathy and infection try to treat underlying disease look for secondary infection if possible. CT showed chronic changes, neurology is on consult, EEG was normal. 4 advance Parkinson disease: Patient has been on Requip along with amantadine and Sinemet has been seen Dr. Calderon on regular basis. 5 chronic edema: Has been on Lasix continue medication. 6 severe GERD has been on Protonix 40 mg daily. 7 debility: With his current condition will consult PT/OT, plan is to discharge patient to a rehab facility. 8 BPH: Resume Proscar at 5 mg daily. 9 DVT prophylaxis: Patient will be on heparin 5000 units subcutaneous twice a day. 10 GI prophylaxis: Continue Protonix 40 mg by mouth CODE STATUS: Full code. The above impression and plan of care have been discussed and directed by signing physician. Yeimi Pichardo nurse practitioner acting as scribe for signing physician.
[2017-03-05] MEDS: MULTIVITAMINS, THERA 1 EACH TAB PO SCH (13:09)
[2017-03-05] MEDS: SODIUM CHLORIDE 0.9% 1,000 ML IV SCH ×2 (21:55→22:19)
[2017-03-05] MEDS: diphenhydrAMINE 50 MG CAP PO SCH (22:00)
[2017-03-05] MEDS: AMOXIC-POT CLAV 875-125MG 1 EACH TAB PO SCH (22:03)
[2017-03-05 22:21] VITALS: RESP 16
--- NOTE | 2017-03-05 22:39 | P.PN ---
Lazaro Jimenez is a 82-year-old right-handed white male who was seen in neurology consultation yesterday for evaluation of altered mental status. Patient has a known history of underlying Parkinson's disease. He was noted yesterday is having increasing episodes of confusion and disorientation. He was seen in neurology consultation yesterday and did seem to be appropriate for his age. He was answering questions appropriately. We did recommend the patient undergo a CAT scan of the brain for further evaluation and comparison to her previous study done 2 years ago. His previous CAT scan of the brain did reveal evidence of cortical atrophy with some frontotemporal atrophy noted bilaterally. We are awaiting a computed tomography scan of the brain to be done today for further assessment. Patient was sent for routine EEG today which will be reviewed and read later today. Patient does seem to be resting comfortably. His Parkinson's condition remains very stable on his current medications. He was seen by surgery and Dr. Fontanez has evaluated his decubitus ulcer and colostomy hernia and things appeared to be stable. The patient has been appropriate this morning according to the nursing staff. He has been answering questions appropriately. He does not appear to be acutely confused or disoriented this morning. Patient was able to undergo computed tomography scan of the brain late this evening. CAT scan report indicates extensive degenerative and nonspecific white matter changes suggesting microvascular ischemia. This is compared to her previous CAT scan done on 12/30. Patient was able to complete a routine EEG today as well. EEG was reviewed today and is within normal limits for the patient's age. As noted he is showing increase improvement in his overall mental status today as compared to yesterday. His speech is more clear today and he seems to be oriented appropriately. Patient may be considered for possible discharge home later today. Patient may be considered for placement into ECF in the [place] area. We will continue close neurological follow-up of this patient during this admission. Objective - Vital Signs Vital signs: Vital Signs Temp 97.7 F 03/05/17 08:50 Pulse 69 03/05/17 08:50 Resp 18 03/05/17 08:50 BP 110/69 03/05/17 08:50 Pulse Ox 98 03/05/17 08:50 Intake & Output 03/04/17 03/05/17 03/05/17 18:59 06:59 18:59 Intake Total 1300 1650 800 Output Total 107 290 0396 Balance 875 1100 -275 Intake: Intake, IV Titration 1300 1300 650 Amount Piperacillin-Tazobactam 3 50 50 50 .375 gm In Dextrose/Water 1 50ml.bag @ 12.5 mls/hr IVPB Q8HR FAM Rx#: [id number] Sodium Chloride 0.9% 1, 1000 1000 600 000 ml @ 75 mls/hr IV . [id number] FAM Rx#:[id number] Vancomycin 1,250 mg In 250 250 Sodium Chloride 0.9% 250 ml @ 125 mls/hr IVPB Q16H FAM Rx#:[id number] Oral 350 150 Output: Urine 75 350 275 Stool 350 200 800 Other: Voiding Method Urinal Urinal # Voids 2 - Exam Physical examination: PHYSICAL EXAMINATION: Patient is resting comfortably in bed. VITAL SIGNS: Blood pressure is [110/69]. Heart rate is [69]. Respiration is [18] . Temperature is [97.7]. HEENT: Head is atraumatic, neck is supple, there were no carotid bruits. CHEST: Lungs are clear to auscultation and percussion. CARDIAC: S1, S2 normal rate and rhythm. There is no murmur. ABDOMEN: Soft and nontender. Bowel sounds are present. EXTREMITIES: There is no pedal edema. Peripheral pulses are present. Neurological examination: Patient is resting comfortably in bed. He is alert and oriented 3. His speech is slow and at times slightly hesitant. He is following simple commands easily. His memory and intellectual function slightly impaired. Cranial nerve examination: Cranial nerves II through XII are grossly intact. Motor examination: Patient has no pronator drift. Muscle tone reveals minimal cogwheel rigidity in the upper extremities. Muscle strength testing is 4-/5 throughout. Sensory examination was intact. Deep tendon reflexes: The DTRs are 1+ and symmetric. Plantar responses flexor bilaterally. - Labs CBC & Chem 7: 03/03/17 07:28 03/05/17 06:52 Labs: Abnormal Lab Results - Last 24 Hours (Table) 03/05/17 Range/Units 06:52 Chloride 108 H (98-107) mmol/L Microbiology - Last 24 Hours (Table) 03/02/17 17:53 Blood Culture - Preliminary Blood No Growth after 48 hours Assessment and Plan (1) Metabolic encephalopathy Status: Acute Code(s): G93.41 - METABOLIC ENCEPHALOPATHY (2) Parkinson's disease Status: Acute Code(s): G20 - PARKINSON'S DISEASE (3) Sacral decubitus ulcer Status: Acute Code(s): L89.159 - PRESSURE ULCER OF SACRAL REGION, UNSPECIFIED STAGE (4) Parkinson's disease dementia Status: Acute Code(s): G20 - PARKINSON'S DISEASE; F02.80 - DEMENTIA IN OTH DISEASES CLASSD ELSWHR W/O BEHAVRL DISTURB Plan: This patient is a pleasant 82-year-old right-handed white male who is being evaluated for altered mental status and mild confusion. Patient has multiple complex medical issues including a known history of underlying Parkinson's disease and mild memory loss. We have recommended a computed tomography scan of the brain to be done today and we're waiting this final report. He underwent a routine EEG earlier today and this will be reviewed and dictated later today as well. His Parkinson's condition remains very stable this morning. His mental status also seems slightly better than yesterday as well on his neurological assessment this afternoon. Would consider physical therapy evaluation for possible ongoing outpatient PT for treatment of his underlying Parkinson's condition. He apparently ambulates with the use of his walker and cane at home. He is to continue on his current Parkinson medications. Patient underwent computed tomography scan of the brain yesterday the results of which are noted above. CAT scan failed to reveal any new changes however there was extensive white matter ischemic changes noted bilaterally. He underwent a routine EEG which was reviewed today and is within normal limits for the patient 's age. The patient continues to show improvement in his overall mental status. He is being treated for sacral decubitus ulcer and was seen by infectious disease. He is to undergo a bone scan to rule out osteomyelitis. We will await further recommendations from infectious disease. Patient did undergo a bone scan which came back negative for any evidence of osteomyelitis. We will continue close neurological follow-up for this patient during this admission. His overall prognosis at this time remains guarded. Patient may be considered for discharge subacute rehab for long-term care. Apparently the has informed nursing staff that she is planning to move her [place] area to be close to her son who resides there. Overall his neurological status remains very stable. There is been no significant worsening of his overall Parkinson's disease. He is to be maintained on his current medications. We will continue close neurological follow-up for this patient during this admission.
--- NOTE | 2017-03-05 22:59 | P.PN ---
Subjective Principal diagnosis: Nonhealing ulcer 82-year-old male presents to Hospital with difficulty with nonhealing ulceration to his coccyx and buttocks. His been cared for in the outpatient setting. Apparently despite multiple interventions most related with Dakin's it has not been healing. Consequently the ulceration and difficulties with his ostomy he was brought in the hospital. The patient has Parkinson's disease, moderately severe but is able to feed himself, but does have dementia. He is comfortable and calm tonight. No difficulty with his dinner excepts takes him quite a long time to try to eat. He is denying any significant discomfort. Relates the ulcer is not painful. It is not noted these any fevers, chills or rigors. Better today Family present and update given Objective - Vital Signs Vital signs: Vital Signs Temp 98.7 F 03/05/17 22:20 Pulse 78 03/05/17 22:20 Resp 16 03/05/17 22:20 BP 111/58 03/05/17 22:20 Pulse Ox 96 03/05/17 22:20 Intake & Output 03/05/17 03/05/17 03/06/17 06:59 18:59 06:59 Intake Total 1650 800 Output Total 550 1350 Balance 1100 -550 Weight 65.317 kg Intake: Intake, IV Titration 1300 650 Amount Piperacillin-Tazobactam 3 50 50 .375 gm In Dextrose/Water 1 50ml.bag @ 12.5 mls/hr IVPB Q8HR FAM Rx#: [id number] Sodium Chloride 0.9% 1, 1000 600 000 ml @ 75 mls/hr IV . [id number] FAM Rx#:[id number] Vancomycin 1,250 mg In 250 Sodium Chloride 0.9% 250 ml @ 125 mls/hr IVPB Q16H FAM Rx#:[id number] Oral 350 150 Output: Urine 350 550 Stool 200 800 Other: Voiding Method Urinal Urinal # Voids 2 - Exam Pleasant 82-year-old male that has evidence of the movement disorder consistent with Parkinson's. HEENT: Anicteric conjunctiva are pink and moist nasal mucosa grossly intact without significant lesions, there is no thrush. No tenderness to the bilateral mastoids Neck: The neck is supple without significant lymphadenopathy or thyromegaly. Lungs: Symmetrical bilateral air entry without significant crackles or wheezing. There is no significant bronchial sounds. There is no egophony or dullness. Heart: Irregular with an audible S1 and S2 soft S4 There is no significant murmur click or rub, PMI was nondisplaced. Abdomen: Positive bowel sounds soft and nontender without palpable masses or organomegaly. There was no guarding or rebound. Extremities: The upper extremities have excellent pulses they are symmetric, no significant petechiae or telangiectasia. No splinter hemorrhages were noted. The lower extremities are free from significant edema. The peripheral pulses were 2+ and symmetric. Neuro: The patient is awake and alert oriented to person and place. He has evidence of the movement disorder with very slow motions in well control tremor at this time. Please see nursing photography for the extensive pressure ulceration to the coccyx area. It is noted there is tunneling. It is modestly clean. - Labs CBC & Chem 7: 03/03/17 07:28 03/05/17 06:52 Labs: Abnormal Lab Results - Last 24 Hours (Table) 03/05/17 Range/Units 06:52 Chloride 108 H (98-107) mmol/L Microbiology - Last 24 Hours (Table) 03/02/17 17:53 Blood Culture - Preliminary Blood No Growth after 72 hours 03/03/17 10:30 Anaerobic Culture - Preliminary Buttock 03/03/17 10:30 Gram Stain - Final Buttock Wound Culture - Final Laboratory Results WBC 11.3 k/uL (3.8-10.6) H 03/03/17 07:28 RBC 4.02 m/uL (4.30-5.90) L 03/03/17 07:28 Hgb 11.7 gm/dL (13.0-17.5) L 03/03/17 07:28 Hct 37.1 % (39.0-53.0) L 03/03/17 07:28 MCV 92.5 fL (80.0-100.0) 03/03/17 07:28 MCH 29.0 pg (25.0-35.0) 03/03/17 07:28 MCHC 31.4 g/dL (31.0-37.0) 03/03/17 07:28 RDW 14.2 % (11.5-15.5) 03/03/17 07:28 Plt Count 370 k/uL (150-450) 03/03/17 07:28 Neutrophils % 83 % 03/03/17 07:28 Lymphocytes % 6 % 03/03/17 07:28 Monocytes % 4 % 03/03/17 07:28 Eosinophils % 5 % 03/03/17 07:28 Basophils % 1 % 03/03/17 07:28 Neutrophils # 9.4 k/uL (1.3-7.7) H 03/03/17 07:28 Lymphocytes # 0.7 k/uL (1.0-4.8) L 03/03/17 07:28 Monocytes # 0.4 k/uL (0-1.0) 03/03/17 07:28 Eosinophils # 0.6 k/uL (0-0.7) 03/03/17 07:28 Basophils # 0.1 k/uL (0-0.2) 03/03/17 07:28 Hypochromasia Slight 03/03/17 07:28 ESR 35 mm/hr (0-15) H 03/02/17 15:18 Sodium 141 mmol/L (137-145) 03/05/17 06:52 Potassium 4.2 mmol/L (3.5-5.1) 03/05/17 06:52 Chloride 108 mmol/L (98-107) H 03/05/17 06:52 Carbon Dioxide 24 mmol/L (22-30) 03/05/17 06:52 Anion Gap 9 mmol/L 03/05/17 06:52 BUN 14 mg/dL (9-20) 03/05/17 06:52 Creatinine 0.71 mg/dL (0.66-1.25) 03/05/17 06:52 Est GFR (MDRD) Af Amer >60 (>60 ml/min/1.73 sqM) 03/05/17 06:52 Est GFR (MDRD) Non-Af >60 (>60 ml/min/1.73 sqM) 03/05/17 06:52 Glucose 75 mg/dL (74-99) 03/05/17 06:52 Calcium 8.8 mg/dL (8.4-10.2) 03/05/17 06:52 Total Bilirubin 0.7 mg/dL (0.2-1.3) 03/03/17 07:28 AST 20 U/L (17-59) 03/03/17 07:28 ALT 22 U/L (21-72) 03/03/17 07:28 Alkaline Phosphatase 80 U/L (38-126) 03/03/17 07:28 C-Reactive Protein 27.9 mg/L (<10.0) H 03/02/17 15:18 Total Protein 5.6 g/dL (6.3-8.2) L 03/03/17 07:28 Albumin 3.1 g/dL (3.5-5.0) L 03/03/17 07:28 Prealbumin 14.0 mg/dL (18.0-42.0) L 03/03/17 07:28 Vancomycin Trough 16.2 ug/mL 03/05/17 06:52 Microbiology 03/02/17 17:53 Blood Blood Culture - Preliminary No Growth after 72 hours 03/03/17 10:30 Buttock Anaerobic Culture - Preliminary 03/03/17 10:30 Buttock Gram Stain - Final 03/03/17 10:30 Buttock Wound Culture - Final - Imaging and Cardiology bone scan negative for osteomyeltis Assessment and Plan (1) Parkinson's disease dementia Status: Acute (2) Stage IV pressure ulcer of sacral region Narrative/Plan: 82-year-old male presents to Hospital with the significant pressure ulceration to the coccyx and sacral area. The area has been cleansed with Dakin solution and there is some granulation in the area. However is nonhealing and has tunneling. Surgical consult has been requested. Bone scan will be requested to determine if there is underlying bony infection. Assessment help further determine the course of antibiotic therapy. Currently being treated with Zosyn and vancomycin until culture data is available. He has an air mattress for offloading Protein level is low prealbumin is 14 and will need protein supplementation for healing. Unclear with the plan of therapy at time of his discharge. Has been seen by surgery with no plan for surgical intervention, and then would do well to have a specially offloading air mattress for his healing. Would also need a Roho or similar cushion for him to be sitting on in a chair to further assist in healing. Will be discharged to [facility] in [place] tomorrow. oral [id number] po bid for 2 weeks requested Status: Acute
[2017-03-06] MEDS ORDERED: VANCOMYCIN 1,000 MG in SODIUM CHLORIDE 0.9% 250 ML IVPB SCH ×2
[2017-03-06 07:38] VITALS: BP 145/67; PULSE 86; TEMP 98.5
[2017-03-06 08:16] LABS: Anion Gap 7 mmol/L; Blood Urea Nitrogen 18 mg/dL (9-20); Calcium 8.6 mg/dL (8.4-10.2); Carbon Dioxide 25 mmol/L (22-30); Chloride 109 mmol/L (98-107); Glucose 78 mg/dL (74-99); Non-African American GFR(MDRD) >60 (>60 ml/min/1.73 sqM); Potassium 4.4 mmol/L (3.5-5.1); Sodium 141 mmol/L (137-145)
[2017-03-06] MEDS: Acetaminophen-Codeine 300-30mg TAB PO PRN (08:25)
[2017-03-06] MEDS: FINASTERIDE 5 MG TAB PO SCH (08:26)
[2017-03-06] MEDS: rOPINIRole HCL 4 MG TABLET PO SCH (08:26)
[2017-03-06] MEDS: AMOXIC-POT CLAV 875-125MG 1 EACH TAB PO SCH (08:26)
[2017-03-06] MEDS: BENZONATATE 100 MG CAP PO SCH (08:26)
[2017-03-06] MEDS: CARBIDOPA-LEVODOPA 25-100 MG 1 EACH TAB PO SCH (08:26)
[2017-03-06] MEDS: PANTOPRAZOLE 40 MG TABLET PO SCH (08:27)
[2017-03-06] MEDS: FUROSEMIDE 20 MG TAB PO SCH (08:27)
[2017-03-06] MEDS: AMANTADINE HCL 100 MG CAP PO SCH (08:27)
[2017-03-06] MEDS: HEPARIN SODIUM,PORCINE 5,000 UNIT/ML 1 ML VIAL SQ SCH (08:27)
--- NOTE | 2017-03-06 08:51 | P.DS ---
Providers Date of admission: 03/02/17 13:46 Expected date of discharge: 03/06/17 Attending physician: Mahin Vidales Consults: 03/02/17 14:51 Consult Physician Routine Consulting Provider: Marvin Cedillo Consult Reason/Comments: SHAMAFlahs suggests CT w/o contrast Do you want consulting provider notified?: Yes Consult Physician Urgent Consulting Provider: Jose L Townsend Consult Reason/Comments: Decub ulcer Do you want consulting provider notified?: Yes 03/02/17 17:42 Consult Physician Routine Consulting Provider: Mahin Ryan Consult Reason/Comments: Decub with Ulcer. Do you want consulting provider notified?: Yes Primary care physician: [facility] Course: 82-year-old male debilitated with multiple medical problem had developed decub ulcer for the last few weeks with failure to outpatient treatment has been doing much worse was brought to the hospital as a direct admit was start him on IV antibiotics with Zosyn and vancomycin might require 1 VAC and wound care for the next few weeks. Culture will be done patient also has been complaining of increased abdominal pain with nausea and vomiting with significant recurrent abdominal hernia with his ostomy in the past. Also patient had slight change mental status not been able to ambulate and walk has been having episode of worsening confusion on and off lately. [place] patient has been declining in weight gradually he lost quite bed in the last few month his appetite is down and has been having more trouble with his bowels. 03/03: The patient was seen and evaluated today, he was noted to be sitting up in the bed resting comfortably with his caregiver at the bedside. Dr Berg was consulted for his acute mental status changes and confusion. EEG was ordered and performed, pending results. CT head showed chronic nonspecific white matter changes that is similar to prior exams. Surgery on consult for his herniated ostomy and sacral decubitis ulcer, may need debridement. 03/04: Patient noted to be resting comfortably in bed today. He was consulted by Dr. Ryan yesterday who recommended to continue Zosyn and vancomycin until culture are back. Currently wound cultures are still pending, blood cultures show no growth to date, a bone scan may be done to rule out osteomyelitis. 03/05: Patient was seen and evaluated, he was noted to be sitting up in bed resting comfortably. Patient is consulted by infectious disease, decision is to not do debridement of the wound at this time. Wound and blood cultures are still pending. Bone scan did not show any evidence for osteomyelitis. EEG was normal. Currently the plan is to move patient to a rehab facility with possibility for halfway care. His is looking into rehab facilities with possibilities to moving him to [place] where they will be residing. The patient continues on IV Zosyn and vancomycin. 03/06: Plan is for discharge to [facility] in [place] today. The patient will be switched from IV vancomycin and Zosyn to Augmentin 875 by mouth twice a day for 2 weeks. Vital signs are stable, patient's mentation is at baseline. Plan - Discharge Summary New Discharge Prescriptions: New SILVER sulfADIAZINE CREAM [Silvadene Cream] 1 applic TOPICAL BID dose Amoxic-Pot Clav 875-125Mg [Augmentin 875-125] 1 tab PO Q12HR #20 tablet Continue diphenhydrAMINE [Benadryl] 50 mg PO HS Pantoprazole Sodium [Protonix] 40 mg PO DAILY Furosemide [Lasix] 20 mg PO MOTUWETHFR Dutasteride [Avodart] 0.5 mg PO DAILY Amantadine HCl [Symmetrel] 100 mg PO BID rOPINIRole HCL [Requip] 4 mg PO TID Carbidopa-Levodopa 25-100 mg [Sinemet 25-100 mg] 2 tab PO TID Multivitamins, Thera [Multivitamin (formulary)] 1 tab PO DAILY Bivins-3 Fatty Acids/Fish Oil [Fish Oil 1,000 mg Softgel] 1 cap PO DAILY Benzonatate [Tessalon Perles] 100 mg PO TID Lactulose 10 gm PO DAILY Acetaminophen-Codeine 300-30mg [Tylenol w/codeine #3] 1 tab PO QID PRN #120 PRN Reason: Pain Discharge Medication List Amantadine HCl [Symmetrel] 100 mg PO BID 04/01/16 [History] Carbidopa-Levodopa 25-100 mg [Sinemet 25-100 mg] 2 tab PO TID 04/01/16 [History] Dutasteride [Avodart] 0.5 mg PO DAILY 04/01/16 [History] Furosemide [Lasix] 20 mg PO MOTUWETHFR 04/01/16 [History] Multivitamins, Thera [Multivitamin (formulary)] 1 tab PO DAILY 04/01/16 [History ] Bivins-3 Fatty Acids/Fish Oil [Fish Oil 1,000 mg Softgel] 1 cap PO DAILY [History] Pantoprazole Sodium [Protonix] 40 mg PO DAILY 04/01/16 [History] diphenhydrAMINE [Benadryl] 50 mg PO HS 04/01/16 [History] rOPINIRole HCL [Requip] 4 mg PO TID 04/01/16 [History] Benzonatate [Tessalon Perles] 100 mg PO TID 11/05/16 [History] Lactulose 10 gm PO DAILY 11/05/16 [History] Acetaminophen-Codeine 300-30mg [Tylenol w/codeine #3] 1 tab PO QID PRN #120 [Rx] Amoxic-Pot Clav 875-125Mg [Augmentin 875-125] 1 tab PO Q12HR #20 tablet [Rx] SILVER sulfADIAZINE CREAM [Silvadene Cream] 1 applic TOPICAL BID dose 03/05/17 [Rx] Discharge Disposition: TRANSFER TO [facility]
[2017-03-06] MEDS: LACTULOSE 20 GM/30 ML CUP PO SCH (09:15)
== END 2017-03-06 09:17 | DRG 592 ==
LOC: 3SUR 13:46
PROVIDERS: ADMIT Internal Medicine Geriatric Medicine; ATTEND Internal Medicine Geriatric Medicine
DX: L89.154 Pressure ulcer of sacral region, stage 4 (principal); G93.41 Metabolic encephalopathy; G20 Parkinson's disease; F02.80 Dementia in other diseases classified elsewhere, unspecified severity, without behavioral disturbance, psychotic disturbance, mood disturbance, and anxiety; E44.1 Mild protein-calorie malnutrition; M86.9 Osteomyelitis, unspecified; Z96.642 Presence of left artificial hip joint; R60.9 Edema, unspecified; K21.9 Gastro-esophageal reflux disease without esophagitis; R53.81 Other malaise; N40.0 Benign prostatic hyperplasia without lower urinary tract symptoms; H91.90 Unspecified hearing loss, unspecified ear; K43.5 Parastomal hernia without obstruction or gangrene; Z87.891 Personal history of nicotine dependence; Z68.21 Body mass index [BMI] 21.0-21.9, adult; Z93.3 Colostomy status; Z79.899 Other long term (current) drug therapy; Z88.6 Allergy status to analgesic agent
CPT/HCPCS: 70450; 78315; 80048; 80053; 80202; 84134; 85025; 85652; 86140; 87040; 87070; 87075; 87205; 95819